=== PATIENT | female | born 1955 | race African-American/Black ===

== ENCOUNTER 2020-04-30 01:12 | Inpatient (IN) | payer OTHER ==
--- OUTSIDE RECORDS SUMMARY | 2020-04-30 01:43 | XMS ---
:1955 Author Organization [facility] Support Name Relationship Address Phone [employer] Unavailable [address] [place] [address] [employer] DAUGH[employer] [address] [place] [address] Re-disclosure Warning The records that you are about to access may contain information from federally- assisted alcohol or drug abuse programs. If such information is present, then the following federally mandated warning applies: This information has been disclosed to you from records protected by federal confidentiality rules (42 CFR part 2). The federal rules prohibit you from making any further disclosure of this information unless further disclosure is expressly permitted by the written consent of the person to whom it pertains or as otherwise permitted by 42 CFR part 2. A general authorization for the release of medical or other information is NOT sufficient for this purpose. The Federal rules restrict any use of the information to criminally investigate or prosecute any alcohol or drug abuse patient.The records that you are about to access may contain highly sensitive health information, the redisclosure of which is protected by Article 27-F of the [facility] Public Health law. If you continue you may haveaccess to information: Regarding HIV / AIDS; Provided by facilities licensed or operated by the [facility] Office of Mental Health; or Provided by the [facility] Office for People With Developmental Disabilities. If such information is present, then the following [facility] mandated warning applies: This information has been disclosed to you from confidential records which are protected by state law. State law prohibits you from making any further disclosure of this information without the specific written consent of the person to whom it pertains, or as otherwise permitted by law. Any unauthorized further disclosure in violation of state law may result in a fine or half-way sentence or both. A general authorization for the release of medical or other information is NOT sufficient authorization for further disclosure. Insurance Providers Payer name Policy type Policy ID Covered Covered green party's Policy P madalyn / Coverage green party ID relationship to Ba Inf ormation type ba MEDICARE [id number]
[2020-04-30 01:50] VITALS: BMI 29.2
--- NOTE | 2020-04-30 01:52 | PDOC ---
Attending Attestation - Resident Resident Name: Derek Barnes - ED Attending Attestation I have performed the following: I have examined & evaluated the patient, The case was reviewed & discussed with the resident, I agree w/resident's findings & plan - HPI HPI: 04/30/20 06:48 HPI: 65yo F pmh DM, hyperthyroidism, anemia, lower back pain presenting with 1 day of hematuria. Patient reports 1 day of pain and increasing amounts of gross blood with urination. Denies fevers, chills, nausea, vomiting. Patient denies prior UTI and is concerned that blood in the urine is caused by malignancy. She initially states to a different provider that she has vaginal bleeding, but now states she only sees blood in urine and has no bleeding between episodes of urination. Denies changes in frequency, no pyuria. Prior open chol. No bloody or dark stools. Concerned for malignancy, when asked about the concern, only related to blood x1 day, denies night sweats, weight loss, pain or bleeding before today. - Physicial Exam PE: 04/30/20 06:48 Pt has lower abdomen and flank pain Pt has no fever and no chills. + suprapubic pain and left flank pain - Medical Decision Making 04/30/20 02:47 Patient Name: SONDRA MEDEIROS THIS IS A PRELIMINARY REPORT DATE OF SERVICE: 2020-04-30 01:50:30 IMAGES: 43 EXAM: Ultrasound pelvis transvaginal HISTORY: 65-year-old female with vaginal bleeding COMPARISON: None. FINDINGS: The uterus measures 11.1 x 6.7 x 4.5 cm. Heterogeneous nonspecific density in the uterus myometrium most likely due to fibroids and other uterine masses including malignancy cannot be excluded. In the midportion of the uterus there is a 5 x 3.4 x 4.7 cm area of heterogeneous echogenicity and in the left uterine myometrium there is a 3.0 x 3.0 x 3.5 cm area of heterogeneous echogenicity and a 2.3 x 2.1 x 2.6 cm heterogeneous area of echogenicity and a lower uterine segment heterogeneous area of echogenicity measures 1.9 x 2 x 2.1 cm most likely due to fibroids and other uterine masses including malignancy cannot be excluded. Heterogeneous nonspecific 1.2 cm thickening of the endometrium may be benign or malignant. Limited exam with nonvisualization of the ovaries. There is no free fluid in the pelvis. IMPRESSION: Heterogeneous nonspecific density in the uterus myometrium most likely due to fibroids and other uterine masses including malignancy cannot be excluded. Heterogeneous nonspecific 1.2 cm thickening of the endometrium may be benign or malignant. Pt admitted Discharge - Discharge Information Problems reviewed: Yes Clinical Impression/Diagnosis: Pyelonephritis of left kidney, Uterine mass Urinary tract infection Qualifiers: Urinary tract infection type: acute pyelonephritis Qualified Code(s): N10 - Acute pyelonephritis Condition: Good Disposition: HOME - Follow up/Referral - Patient Discharge Instructions - Post Discharge Activity
--- NOTE | 2020-04-30 01:57 | PDOC ---
History of Present Illness - General Chief Complaint: Hematuria Stated Complaint: VAG BLEED Time Seen by Provider: 04/30/20 01:46 History Source: Patient Exam Limitations: No Limitations - History of Present Illness Initial Comments: 04/30/20 03:13 PCP: Devang Monte HPI: 65yo F pmh DM, hyperthyroidism, anemia, lower back pain presenting with 1 day of hematuria. Patient reports 1 day of pain and increasing amounts of gross blood with urination. Denies fevers, chills, nausea, vomiting. Patient denies prior UTI and is concerned that blood in the urine is caused by malignancy. She initially states to a different provider that she has vaginal bleeding, but now states she only sees blood in urine and has no bleeding between episodes of urination. Denies changes in frequency, no pyuria. Prior open kamala, remote. No changes in bowel movements, no bloody or dark stools. Concerned for malignancy, when asked about the concern, only related to blood x1 day, denies night sweats, weight loss, pain or bleeding before today. All: NKDA Meds: Per chart PMH: As above PSH: Thyroid, Open Kamala Past History - Travel History Traveled outside of the country in the last 30 days: No Close contact w/someone who was outside of country & ill: No - Medical History Allergies/Adverse Reactions: Allergies Allergy/AdvReac Type Severity Reaction Status Date / Time No Known Allergies Allergy Verified 04/30/20 01:50 Home Medications: Ambulatory Orders Insulin (Levemir) [Levemir Vial] 0 unit SQ DAILY 04/05/16 Levothyroxine [Synthroid -] 0 mg PO DAILY 04/05/16 Lidocaine 5% Patch [Lidoderm Patch -] 1 patch TP DAILY #30 patch 04/05/16 Metoprolol Succinate [Toprol Xl -] 0 mg PO DAILY 04/05/16 Oxycodone HCl/Acetaminophen [Percocet 5-325 mg Tablet] 1 tab PO Q4H #20 tablet MDD 4 04/05/16 Diabetes: Yes HTN: Yes Thyroid Disease: Yes - Surgical History Cholecystectomy: Yes - Psycho-Social/Smoking History Smoking Status: No Smoking History: Never smoked Have you smoked in the past 12 months: No Number of Cigarettes Smoked Daily: 0 Review of Systems - Review of Systems Able to Perform ROS?: Yes Is the patient limited Jamaican proficient: Yes Constitutional: No: Chills, Diaphoresis, Fever, Loss of Appetite, Malaise, Weakness, Unintentional Wgt. Loss, Unexplained wgt Loss HEENTM: No: Recent change in vision, Nose Congestion, Throat Pain Respiratory: No: Cough, Shortness of Breath Cardiac (ROS): Yes: Lightheadedness (today only). No: Chest Pain, Palpitations, Syncope, Chest Tightness ABD/GI: No: Constipated, Diarrhea, Nausea, Poor Appetite, Poor Fluid Intake, Vo miting : No: Burning, Dysuria, Frequency Musculoskeletal: No: Back Pain, Muscle Pain, Muscle Weakness Integumentary: No: Bruising, Pruritus, Rash Neurological: No: Headache, Numbness, Tingling, Weakness Psychiatric: No: Sleep Pattern Change, Change in Appetite Endocrine: No: Increased Thirst, Increased Urine, Unexplained Weight Gain, Unexplained Weight Loss, Change in Weight Hematologic/Lymphatic: No: Anemia, Blood Clots, Easy Bleeding All Other Systems: Reviewed and Negative *Physical Exam - Physical Exam 04/30/20 03:18 Vitals reviewed, AFVSS GEN: Well appearing, appears stated age, NAD, comfortable. AAOx3. HEENT: NCAT, EOMI, PERRL. Sclera anicteric, noninjected. No facial asymmetry. Moist mucous membranes. Normal voice. Trachea midline. CV: RRR, S1/S2, no murmurs / rubs / gallops appreciated. LUNG: CTABL, normal work of breathing. No wheezes, rales, rhonchi. No cough. Speaking full sentences. GI: Soft, Non-distended, TTP in lower abdomen, +BS, +guarding, no rebound. No masses. +Left CVA tenderness. EXTREMITIES: 2+ distal pulses. No clubbing / cyanosis / edema. No gross deformity in any extremity. SKIN: Warm, dry, no rashes appreciated, non-jaundiced. PSYCH: Normal mood and affect. Cooperative and appropriate. NEURO: CN grossly intact. Moving all extremities well. Normal strength and sensation grossly ED Treatment Course - LABORATORY CBC & Chemistry Diagram: 04/30/20 02:30 04/30/20 02:30 Medical Decision Making - Medical Decision Making 04/30/20 03:17 65yo F pmh DM, hyperthyroidism, anemia, lower back pain presenting with 1 day of hematuria. History notable for acute course of presenting symptoms. Exam notable for left CVA, suprapubic tenderness. Together concerning for UTI / Pyelonephr itis, GNY pathology / malignancy also on the DDX. - TVUS - CBC, CMP, Coags - UA, UCx - CTAP - UA with gross UTI, exam c/w pyelonephritis, Rocephin, Toradol, IVF - TVUS with mass c/f malignancy per radiology 04/30/20 05:[address] Jg GRIMALDO with ?colon mass, breast changes, uterine mass Dispo: Med/Surg Discharge - Discharge Information Problems reviewed: Yes Clinical Impression/Diagnosis: Pyelonephritis of left kidney, Uterine mass Urinary tract infection Qualifiers: Urinary tract infection type: acute pyelonephritis Qualified Code(s): N10 - Acute pyelonephritis Condition: Guarded - Follow up/Referral - Patient Discharge Instructions - Post Discharge Activity
[2020-04-30 02:40] LABS: BASO % 0.7 % (0-2.0); EOS % 1.2 % (0-4.5); HEMATOCRIT 37.2 % (32.4-45.2); HEMOGLOBIN 12.3 GM/dL (10.7-15.3); LYMPH % 14.7 % (8-40); MCH 25.4 pg (25.7-33.7); MCHC 33.1 g/dl (32.0-36.0); MEAN CELL VOLUME 76.7 fl (80-96); MEAN PLT VOLUME 8.9 fl (7.5-11.1); MONO % 10.6 % (3.8-10.2); NEUT % 72.8 % (42.8-82.8); PLATELET COUNT 229 K/MM3 (134-434); RBC 4.85 M/mm3 (3.60-5.2); RDW 16.8 % (11.6-15.6); WHITE BLOOD COUNT 12.5 K/mm3 (4.0-10.0)
[2020-04-30 02:43] LABS: EPI CELLS 21 /uL (0-25.1); HYALINE CASTS 4 /uL (0-3.1); URINE APPEARANCE TURBID; URINE BACTERIA 1526 /uL (0-1359); URINE BILIRUBIN NEGATIVE (NEGATIVE); URINE COLOR RED; URINE GLUCOSE (UA) NEGATIVE (NEGATIVE); URINE KETONE NEGATIVE (NEGATIVE); URINE LEUK ESTERASE 3+ (NEGATIVE); URINE NITRITE NEGATIVE (NEGATIVE); URINE PROTEIN 2+ (NEGATIVE); URINE RBC 9057 /uL (0-23.9); URINE UROBILINOGEN 0.2 mg/dL (0.2-1.0); URINE WBC 2130 /uL (0-25.8)
[2020-04-30] MEDS ORDERED: CEFTRIAXONE 1 GM in DEXTROSE 5%-WATER - 50 ML IVPB ONE (02:45)
[2020-04-30] MEDS ORDERED: KETOROLAC TROMETHAMINE 30 MG/1 ML VIAL IVPUSH ONE (02:45)
[2020-04-30] MEDS ORDERED: CEFTRIAXONE 1 GM/50 ML BAG ONE (02:46)
[2020-04-30] MEDS ORDERED: KETOROLAC TROMETHAMINE 30 MG/1 ML VIAL ONE (02:46)
[2020-04-30 03:12] LABS: CALCIUM 9.3 mg/dL (8.5-10.1)
[2020-04-30 03:13] LABS: ALBUMIN 3.6 g/dl (3.4-5.0); BLOOD UREA NITROGEN 9.3 mg/dL (7-18)
[2020-04-30 03:16] LABS: CREATININE 0.8 mg/dL (0.55-1.3)
[2020-04-30 03:18] LABS: BILIRUBIN,TOTAL 0.4 mg/dL (0.2-1); TOT PROT 7.4 g/dl (6.4-8.2)
[2020-04-30] MEDS ORDERED: SODIUM CHLORIDE 0.9% 500 ML INFUS.BAG IV ONE (03:26)
[2020-04-30 04:17] LABS: PROTHROMBIN TIME (PATIENT) 12.1 SEC (9.7-13.0)
[2020-04-30 04:19] LABS: ACTIVATED PTT 28.8 SECONDS (25.2-36.5)
--- OUTSIDE RECORDS SUMMARY | 2020-04-30 05:23 | XMS ---
:1955 Author Organization [facility] Support Name Relationship Address Phone [facility] Unavailable [address] [place] [address] [employer] [address] [place] [address] Re-disclosure Warning The records that you are [...] is protected by Article 27-F of the [facility] Public Health law. If you continue you may haveaccess to information: Regarding HIV / AIDS; Provided by facilities licensed or operated by the [facility] Office of Mental Health; or Provided by the [facility] Office for People With Developmental Disabilities. If such information is present, then the following [facility] mandated warning applies: This information has been [...] law may result in a fine or intermediate sentence or both. A general authorization for the release of medical or other information is NOT sufficient authorization for further disclosure. Insurance Providers Payer name Policy type Policy ID Covered Covered green party's Policy P madalyn / Coverage green party ID relationship to Ba Inf ormation type ba MEDICARE [id number]
--- NOTE | 2020-04-30 11:55 | CON.ID ---
Consult Consult Specialty:: infectious disease Referred by:: Reason for Consultation:: uti,hematuria - History of Present Illness Chief Complaint: blood in the urine History of Present Illness: 65yo F pmh DM, hyperthyroidism, anemia, lower back pain presenting with hematuria. Patient reports of pain and increasing amounts of gross blood with urination. Denies fevers, chills, nausea, vomiting. . Denies changes in frequency, no pyuria. Prior open chol. No bloody or dark stools. currently she feels very weak and hungry and says blood has stopped now - History Source History Provided By: Patient Limitations to Obtaining History: No Limitations - Past Medical History ...: No - Alcohol/Substance Use Hx Alcohol Use: No - Smoking History Smoking history: Never smoked Have you smoked in the past 12 months: No Aproximately how many cigarettes per day: 0 Home Medications - Allergies Allergies/Adverse Reactions: Allergies Allergy/AdvReac Type Severity Reaction Status Date / Time No Known Allergies Allergy Verified 04/30/20 01:50 - Home Medications Home Medications: Ambulatory Orders Insulin (Levemir) [Levemir Vial] 0 unit SQ DAILY 04/05/16 Levothyroxine [Synthroid -] 0 mg PO DAILY 04/05/16 Lidocaine 5% Patch [Lidoderm Patch -] 1 patch TP DAILY #30 patch 04/05/16 Metoprolol Succinate [Toprol Xl -] 0 mg PO DAILY 04/05/16 Oxycodone HCl/Acetaminophen [Percocet 5-325 mg Tablet] 1 tab PO Q4H #20 tablet MDD 4 04/05/16 Review of Systems - Review of Systems Constitutional: reports: Weakness Eyes: reports: No Symptoms HENT: reports: No Symptoms Neck: reports: No Symptoms Cardiovascular: reports: No Symptoms Respiratory: reports: No Symptoms Gastrointestinal: reports: No Symptoms Genitourinary: reports: Hematuria, Other Musculoskeletal: reports: No Symptoms Integumentary: reports: No Symptoms Neurological: reports: No Symptoms Endocrine: reports: No Symptoms Hematology/Lymphatic: reports: No Symptoms Psychiatric: reports: No Symptoms Physical Exam Vital Signs: Vital Signs Temperature 97.9 F 04/30/20 10:40 Pulse Rate 106 H 04/30/20 10:40 Respiratory Rate 18 04/30/20 10:40 Blood Pressure 129/54 L 04/30/20 10:40 O2 Sat by Pulse Oximetry (%) 98 04/30/20 10:40 Constitutional: Yes: Calm, Mild Distress Eyes: Yes: Conjunctiva Clear HENT: Yes: Atraumatic, Normocephalic Neck: Yes: Supple, Trachea Midline Cardiovascular: Yes: Regular Rate and Rhythm Respiratory: Yes: Regular, CTA Bilaterally Gastrointestinal: Yes: Normal Bowel Sounds, Soft Musculoskeletal: Yes: WNL Extremities: Yes: WNL Neurological: Yes: Alert, Oriented Psychiatric: Yes: Alert, Oriented Labs: CBC, BMP 04/30/20 02:30 04/30/20 02:30 Imaging - Results Cat Scan: Report Reviewed, Image Reviewed Ultrasound: Report Reviewed, Image Reviewed Assessment/Plan this patient coming in with hematuria which ahs now stopped patients imaging studies noted worry about malignancy consider gi and surgery to look at the patient will start patient on zosyn for now await for all results rest as per the team needs further work up
[2020-04-30] MEDS ORDERED: PIPERACILLIN/TAZOBACTAM 3.375 GM VIAL IVPB ONE ×2 (13:34→18:34)
[2020-04-30] MEDS: DEXTROSE 5%-0.45% SALINE 1,000 ML IV SCH (13:39)
[2020-04-30] MEDS: PIPERACILLIN/TAZOB 3.375 GM 3.375 GM in DEXTROSE 5%-WATER - 50 ML IVPB SCH ×2 (13:40→18:37)
[2020-04-30] MEDS: INSULIN SLIDING SCALE (NOVOLOG) 1 VIAL SQ SCH ×3 (13:54→21:22)
[2020-04-30] MEDS ORDERED: INSULIN (NOVOLOG) ASPART 100 UNITS/ML 10ML VIAL ONE ×2 (13:54→20:51)
[2020-04-30] MEDS: ACETAMINOPHEN 325 MG TABLET (FP) PO PRN (17:03)
[2020-04-30] MEDS ORDERED: ACETAMINOPHEN 325 MG TABLET (FP) PO ONE (17:30)
[2020-04-30] MEDS ORDERED: DEXTROSE 5%-WATER - 50 ML IVPB ONE (18:34)
[2020-04-30] MEDS: HEPARIN NA (PORCINE) 5,000 UNITS/ML 1ML VIAL SQ SCH (21:21)
--- NOTE | 2020-04-30 22:19 | HP ---
Admitting History and Physical - Admission History of Present Illness: Pt is a 65 y/o female w/ PMH significant for DM, hyperthyroidism, anemia, lower back pain presenting with 1 day of hematuria. Patient reports 1 day of pain and increasing amounts of gross blood with urination. Denies fevers, chills, nausea, vomiting. Patient denies prior UTI and is concerned that blood in the urine is caused by malignancy. - Past Medical History ...: No Heme/Onc: Yes: Anemia Endocrine: Yes: Diabetes Mellitus, Hyperthyroidism - Smoking History Smoking history: Never smoked Have you smoked in the past 12 months: No Aproximately how many cigarettes per day: 0 - Alcohol/Substance Use Hx Alcohol Use: No Home Medications - Allergies Allergies/Adverse Reactions: Allergies Allergy/AdvReac Type Severity Reaction Status Date / Time No Known Allergies Allergy Verified 04/30/20 01:50 - Home Medications Home Medications: Ambulatory Orders Levothyroxine [Synthroid -] 25 mg PO DAILY 04/05/16 Metoprolol Succinate [Toprol Xl -] 25 mg PO DAILY 04/05/16 Insulin Aspart [Novolog] See Protocol SQ TID PRN 04/30/20 Insulin Degludec [Tresiba] 20 units SQ DAILY 04/30/20 Family Medical History Family History: Unremarkable Review of Systems - Review of Systems Constitutional: reports: No Symptoms Eyes: reports: No Symptoms HENT: reports: No Symptoms Neck: reports: No Symptoms Cardiovascular: reports: No Symptoms Respiratory: reports: No Symptoms Physical Examination Vital Signs: Vital Signs Temperature 98.1 F 04/30/20 22:06 Pulse Rate 59 L 04/30/20 22:06 Respiratory Rate 18 04/30/20 22:06 Blood Pressure 143/56 L 04/30/20 22:06 O2 Sat by Pulse Oximetry (%) 95 04/30/20 22:06 Constitutional: Yes: No Distress Eyes: Yes: WNL HENT: Yes: WNL Neck: Yes: WNL, Supple Cardiovascular: Yes: WNL, Regular Rate and Rhythm Respiratory: Yes: WNL, Regular, CTA Bilaterally Gastrointestinal: Yes: WNL, Normal Bowel Sounds, Soft Extremities: Yes: WNL Edema: No Neurological: Yes: WNL, Alert, Oriented ...Motor Strength: WNL Labs: CBC, BMP 04/30/20 02:30 04/30/20 02:30 Problem List - Problems (1) Pyelonephritis Assessment/Plan: Cont IV antibx Cont IVF Monitor cultures ID consult Code(s): N12 - TUBULO-INTERSTITIAL NEPHRITIS, NOT SPCF ACUTE OR CHRONIC (2) Colonic mass Assessment/Plan: Will get GI/Surgical consults Code(s): K63.89 - OTHER SPECIFIED DISEASES OF INTESTINE (3) Uterine fibroid Assessment/Plan: [employer] consult Code(s): D25.9 - LEIOMYOMA OF UTERUS, UNSPECIFIED (4) Anemia Assessment/Plan: H/H stable Code(s): D64.9 - ANEMIA, UNSPECIFIED (5) Diabetes Assessment/Plan: Cont sliding scale w/ coverage Code(s): E11.9 - TYPE 2 DIABETES MELLITUS WITHOUT COMPLICATIONS
[2020-05-01] MEDS ORDERED: DEXTROSE 5%-WATER - 50 ML IVPB ONE ×3 (01:05→17:08)
[2020-05-01] MEDS ORDERED: PIPERACILLIN/TAZOBACTAM 3.375 GM VIAL IVPB ONE ×3 (01:05→17:08)
[2020-05-01] MEDS: PIPERACILLIN/TAZOB 3.375 GM 3.375 GM in DEXTROSE 5%-WATER - 50 ML IVPB SCH ×3 (02:00→17:13)
[2020-05-01] MEDS: DEXTROSE 5%-0.45% SALINE 1,000 ML IV SCH ×2 (04:40→16:52)
[2020-05-01] MEDS: LEVOTHYROXINE NA 25 MCG TABLET (FP) PO SCH (06:12)
[2020-05-01] MEDS: INSULIN SLIDING SCALE (NOVOLOG) 1 VIAL SQ SCH ×4 (06:12→22:39)
[2020-05-01] MEDS: ACETAMINOPHEN 325 MG TABLET (FP) PO PRN ×2 (06:17→22:50)
[2020-05-01 07:57] LABS: BASO % 0.7 % (0-2.0); EOS % 2.6 % (0-4.5); HEMATOCRIT 33.4 % (32.4-45.2); HEMOGLOBIN 10.8 GM/dL (10.7-15.3); LYMPH % 34.2 % (8-40); MCH 24.8 pg (25.7-33.7); MCHC 32.2 g/dl (32.0-36.0); MEAN PLT VOLUME 10.1 fl (7.5-11.1); MONO % 13.5 % (3.8-10.2); PLATELET COUNT 212 K/MM3 (134-434); RBC 4.34 M/mm3 (3.60-5.2); RDW 16.7 % (11.6-15.6); WHITE BLOOD COUNT 6.3 K/mm3 (4.0-10.0)
[2020-05-01 08:16] LABS: ALBUMIN 2.7 g/dl (3.4-5.0); BLOOD UREA NITROGEN 9.6 mg/dL (7-18); CALCIUM 8.7 mg/dL (8.5-10.1)
[2020-05-01 08:19] LABS: CREATININE 0.8 mg/dL (0.55-1.3)
[2020-05-01 08:21] LABS: BILIRUBIN,TOTAL 0.6 mg/dL (0.2-1); TOT PROT 5.8 g/dl (6.4-8.2)
[2020-05-01] MEDS: HEPARIN NA (PORCINE) 5,000 UNITS/ML 1ML VIAL SQ SCH ×2 (09:17→22:28)
[2020-05-01] MEDS: metoPROLOL SUCCINATE 25 MG TAB.SR.24H (FP) PO SCH (09:17)
[2020-05-01] MEDS ORDERED: MORPHINE SULFATE 2 MG/ML VIAL IVPUSH ONE (10:00)
[2020-05-01] MEDS ORDERED: CEFTRIAXONE 1 GM in DEXTROSE 5%-WATER - 50 ML IVPB SCH (10:00)
[2020-05-01] MEDS ORDERED: INSULIN (NOVOLOG) ASPART 100 UNITS/ML 10ML VIAL ONE ×2 (11:33→16:48)
--- NOTE | 2020-05-01 11:44 | PN ---
Progress Note, Physician History of Present Illness: stable no new issues - Current Medication List Current Medications: Active Medications Acetaminophen (Tylenol -) 650 mg PO Q6H PRN PRN Reason: PAIN LEVEL 6-10 Last Admin: 05/01/20 06:17 Dose: 650 mg Documented by: Heparin Sodium (Porcine) (Heparin -) 5,000 unit SQ BID [facility] Last Admin: 05/01/20 09:17 Dose: 5,000 unit Documented by: Dextrose/Sodium Chloride (D5-1/2ns -) 1,000 mls @ 75 mls/hr IV ASDIR [facility] Last Admin: 05/01/20 04:40 Dose: 75 mls/hr Documented by: Piperacillin Sod/Tazobactam (Sod 3.375 gm/ Dextrose) 50 mls @ 100 mls/hr IVPB Q8H-IV [facility]; Protocol Last Admin: 05/01/20 09:17 Dose: 100 mls/hr Documented by: Insulin Aspart (Novolog Vial Sliding Scale -) 1 vial SQ ACHS [facility]; Protocol Last Admin: 05/01/20 11:34 Dose: 8 units Documented by: Insulin Detemir (Levemir Vial) [address] [facility] Levothyroxine Sodium (Synthroid -) 25 mcg PO DAILY@0700 [facility] Last Admin: 05/01/20 06:12 Dose: Not Given Documented by: Metoprolol Succinate (Toprol Xl -) 25 mg PO DAILY [facility] Last Admin: 05/01/20 09:17 Dose: 25 mg Documented by: - Objective Vital Signs: Vital Signs Temperature 98.0 F 05/01/20 09:25 Pulse Rate 68 05/01/20 09:25 Respiratory Rate 18 05/01/20 09:25 Blood Pressure 122/75 05/01/20 09:25 O2 Sat by Pulse Oximetry (%) 95 05/01/20 10:39 Constitutional: Yes: No Distress, Calm Cardiovascular: Yes: S1, S2 Respiratory: Yes: Regular, CTA Bilaterally Gastrointestinal: Yes: Normal Bowel Sounds, Soft Musculoskeletal: Yes: WNL Extremities: Yes: WNL Neurological: Yes: Alert, Oriented Psychiatric: Yes: Alert, Oriented Labs: CBC, BMP 05/01/20 07:05 05/01/20 07:05 INR, PTT INR 1.00 (0.83-1.09) 04/30/20 03:24 Assessment/Plan roblem List - Problems (1) Pyelonephritis Code(s): N12 - TUBULO-INTERSTITIAL NEPHRITIS, NOT SPCF ACUTE OR CHRONIC (2) Colonic mass Code(s): K63.89 - OTHER SPECIFIED DISEASES OF INTESTINE (3) Uterine fibroid Code(s): D25.9 - LEIOMYOMA OF UTERUS, UNSPECIFIED (4) Anemia Code(s): D64.9 - ANEMIA, UNSPECIFIED (5) Diabetes Code(s): E11.9 - TYPE 2 DIABETES MELLITUS WITHOUT COMPLICATIONS plan continue abx rest as per the team await for gi and surgical
--- NOTE | 2020-05-01 13:05 | CON.GI ---
Consult Consult Specialty:: GI Reason for Consultation:: colonic mass - History of Present Illness History of Present Illness: pt seen at bedside, reports to have rt sided back and flank pain radiating to the RLQ abdomen. Reports lower abdomen pain as well. Pt reports h/o occasional constipation with incomplete evacuation accompanied with rectal bleeding when constipated. Dysuria much better as compared to yesterday. Denies colonoscopy in the past. No BM today 65yo F pmh DM, hyperthyroidism, anemia, lower back pain presenting with 1 day of hematuria. Patient reports 1 day of pain and increasing amounts of gross blood with urination. Denies fevers, chills, nausea, vomiting. . Prior open kamala, remote. - History Source Limitations to Obtaining History: No Limitations - Past Medical History ...: No Endocrine: Yes: Diabetes Mellitus, Hyperthyroidism - Alcohol/Substance Use Hx Alcohol Use: No - Smoking History Smoking history: Never smoked Have you smoked in the past 12 months: No Aproximately how many cigarettes per day: 0 Home Medications - Allergies Allergies/Adverse Reactions: Allergies Allergy/AdvReac Type Severity Reaction Status Date / Time No Known Allergies Allergy Verified 04/30/20 01:50 - Home Medications Home Medications: Ambulatory Orders Metoprolol Succinate [Toprol Xl -] 25 mg PO DAILY 04/05/16 Insulin Aspart [Novolog] See Protocol SQ TID PRN 04/30/20 Insulin Degludec [Tresiba] 20 units SQ DAILY 04/30/20 Family Medical History Family History: Unremarkable Review of Systems - Review of Systems Constitutional: reports: No Symptoms Eyes: reports: No Symptoms HENT: reports: No Symptoms Neck: reports: No Symptoms Cardiovascular: reports: No Symptoms Respiratory: reports: No Symptoms Gastrointestinal: reports: Abdominal Pain (RLQ), Constipation (reports occasional constipation with incomplete evacuation), Rectal Bleeding (occacional when constipated). denies: Bloating, Diarrhea, Dysphagia, Indigestion, Melena, Vomiting, Vomiting Blood Genitourinary: reports: Burning Physical Exam-GI Vital Signs: Vital Signs Temperature 98.0 F 05/01/20 09:25 Pulse Rate 68 05/01/20 09:25 Respiratory Rate 18 05/01/20 09:25 Blood Pressure 122/75 05/01/20 09:25 O2 Sat by Pulse Oximetry (%) 95 05/01/20 10:39 Constitutional: Yes: Well Nourished, No Distress, Calm Eyes: Yes: WNL, Conjunctiva Clear, EOM Intact HENT: Yes: WNL, Atraumatic, Normocephalic Neck: Yes: WNL, Supple, Trachea Midline Cardiovascular: Yes: WNL, Regular Rate and Rhythm Respiratory: Yes: WNL, Regular, CTA Bilaterally Gastrointestinal Inspection: Yes: WNL ...Auscultate: Yes: Normoactive Bowel Sounds Labs: CBC, BMP 05/01/20 07:05 05/01/20 07:05 INR, PTT INR 1.00 (0.83-1.09) 04/30/20 03:24 Imaging - Results Cat Scan: Report Reviewed Problem List - Problems (1) Cecum mass Assessment/Plan: plan discussed with Dr Guidry. - cecal mass associated with h/o constipation - CEA levels - GI work up, colonoscopy as out patient - pt made aware to follow up Code(s): K63.89 - OTHER SPECIFIED DISEASES OF INTESTINE
--- NOTE | 2020-05-01 16:28 | PN ---
Progress Note, Physician History of Present Illness: feeling better - Current Medication List Current Medications: Active Medications Acetaminophen (Tylenol -) 650 mg PO Q6H PRN PRN Reason: PAIN LEVEL 6-10 Last Admin: 05/01/20 06:17 Dose: 650 mg Documented by: Heparin Sodium (Porcine) (Heparin -) 5,000 unit SQ BID [facility] Last Admin: 05/01/20 09:17 Dose: 5,000 unit Documented by: Dextrose/Sodium Chloride (D5-1/2ns -) 1,000 mls @ 75 mls/hr IV ASDIR [facility] Last Admin: 05/01/20 04:40 Dose: 75 mls/hr Documented by: Piperacillin Sod/Tazobactam (Sod 3.375 gm/ Dextrose) 50 mls @ 100 mls/hr IVPB Q8H-IV [facility]; Protocol Last Admin: 05/01/20 09:17 Dose: 100 mls/hr Documented by: Insulin Aspart (Novolog Vial Sliding Scale -) 1 vial SQ [facility]; Protocol Last Admin: 05/01/20 11:34 Dose: 8 units Documented by: Insulin Detemir (Levemir Vial) 20 units SQ [facility] Levothyroxine Sodium (Synthroid -) 25 mcg PO DAILY@0700 [facility] Last Admin: 05/01/20 06:12 Dose: Not Given Documented by: Metoprolol Succinate (Toprol Xl -) 25 mg PO DAILY [facility] Last Admin: 05/01/20 09:17 Dose: 25 mg Documented by: - Objective Vital Signs: Vital Signs Temperature 97.4 F L 05/01/20 14:22 Pulse Rate 53 L 05/01/20 14:22 Respiratory Rate 18 05/01/20 14:22 Blood Pressure 116/45 L 05/01/20 14:22 O2 Sat by Pulse Oximetry (%) 95 05/01/20 10:39 Constitutional: Yes: No Distress HENT: Yes: Atraumatic Neck: Yes: Supple Cardiovascular: Yes: Regular Rate and Rhythm Respiratory: Yes: CTA Bilaterally Gastrointestinal: Yes: Normal Bowel Sounds Extremities: Yes: WNL Neurological: Yes: Alert, Oriented Labs: CBC, BMP 05/01/20 07:05 05/01/20 07:05 INR, PTT INR 1.00 (0.83-1.09) 04/30/20 03:24 Problem List - Problems (1) Diabetes Assessment/Plan: monitor bs on insulin Code(s): E11.9 - TYPE 2 DIABETES MELLITUS WITHOUT COMPLICATIONS (2) Pyelonephritis Assessment/Plan: iv abx cxs pending Code(s): N12 - TUBULO-INTERSTITIAL NEPHRITIS, NOT SPCF ACUTE OR CHRONIC (3) Urinary tract infection Code(s): N39.0 - URINARY TRACT INFECTION, SITE NOT SPECIFIED Qualifiers: Urinary tract infection type: acute pyelonephritis Qualified Code(s): N10 - Acute pyelonephritis Assessment/Plan COVERING FOR DR SINGH TODAY
--- NOTE | 2020-05-01 19:26 | CONSULT ---
Consult Consult Specialty:: Surgery Reason for Consultation:: cecal mass - History of Present Illness Chief Complaint: hematuria, anemia, and back pain History of Present Illness: Pt is a 65 y/o female w/ PMH significant for DM, hyperthyroidism, anemia, lower back pain presenting with 1 day of hematuria. Patient reports 1 day of pain and increasing amounts of gross blood with urination. Denies fevers, chills, nausea, vomiting. Patient denies prior UTI and is concerned that blood in the urine is caused by malignancy. CT A/P showed cecal mass. Denies weight loss but was told to be anemic and placed on iron supplement by PMD. Has had no colonoscopy in the past. - History Source History Provided By: Patient - Past Medical History ...: No Endocrine: Yes: Diabetes Mellitus, Hyperthyroidism - Alcohol/Substance Use Hx Alcohol Use: No - Smoking History Smoking history: Never smoked Have you smoked in the past 12 months: No Aproximately how many cigarettes per day: 0 Home Medications - Allergies Allergies/Adverse Reactions: Allergies Allergy/AdvReac Type Severity Reaction Status Date / Time No Known Allergies Allergy Verified 04/30/20 01:50 - Home Medications Home Medications: Ambulatory Orders Metoprolol Succinate [Toprol Xl -] 25 mg PO DAILY 04/05/16 Insulin Aspart [Novolog] See Protocol SQ TID PRN 04/30/20 Insulin Degludec [Tresiba] 20 units SQ DAILY 04/30/20 Family Medical History Family History: Unremarkable Review of Systems - Review of Systems Eyes: reports: No Symptoms HENT: reports: No Symptoms Neck: reports: No Symptoms Cardiovascular: reports: No Symptoms Respiratory: reports: No Symptoms Gastrointestinal: reports: Melena (attributed to iron Rx) Genitourinary: reports: Dysuria, Frequency, Hematuria Musculoskeletal: reports: No Symptoms Integumentary: reports: No Symptoms Neurological: reports: No Symptoms Physical Exam Vital Signs: Vital Signs Temperature 97.4 F L 05/01/20 14:22 Pulse Rate 58 L 05/01/20 18:00 Respiratory Rate 18 05/01/20 14:22 Blood Pressure 108/65 05/01/20 18:00 O2 Sat by Pulse Oximetry (%) 96 05/01/20 18:00 Constitutional: Yes: No Distress HENT: Yes: Normocephalic Neck: Yes: Supple Cardiovascular: Yes: Regular Rate and Rhythm Respiratory: Yes: CTA Bilaterally Gastrointestinal: Yes: Soft, Palpable Mass (none), Tenderness (none) Labs: CBC, BMP 05/01/20 07:05 05/01/20 07:05 Imaging - Results Cat Scan: Report Reviewed, Image Reviewed (cecal mass) Problem List - Problems (1) Cecum mass Assessment/Plan: r/o adenocarcinoma GI w/u - colonoscopy recommend [facility] consult will follow Code(s): K63.89 - OTHER SPECIFIED DISEASES OF INTESTINE
[2020-05-01] MEDS: INSULIN (LEVEMIR) 100 UNITS/ML UNITS SQ SCH (22:34)
[2020-05-02] MEDS ORDERED: PIPERACILLIN/TAZOBACTAM 3.375 GM VIAL IVPB ONE ×3 (00:35→17:26)
[2020-05-02] MEDS ORDERED: DEXTROSE 5%-WATER - 50 ML IVPB ONE ×2 (00:36→09:13)
[2020-05-02] MEDS: PIPERACILLIN/TAZOB 3.375 GM 3.375 GM in DEXTROSE 5%-WATER - 50 ML IVPB SCH ×3 (02:15→17:59)
[2020-05-02] MEDS: LEVOTHYROXINE NA 25 MCG TABLET (FP) PO SCH (06:39)
[2020-05-02] MEDS: INSULIN SLIDING SCALE (NOVOLOG) 1 VIAL SQ SCH ×4 (06:39→21:20)
[2020-05-02] MEDS: HEPARIN NA (PORCINE) 5,000 UNITS/ML 1ML VIAL SQ SCH ×2 (09:30→21:21)
[2020-05-02] MEDS: metoPROLOL SUCCINATE 25 MG TAB.SR.24H (FP) PO SCH (09:31)
[2020-05-02] MEDS: DEXTROSE 5%-0.45% SALINE 1,000 ML IV SCH (09:32)
--- NOTE | 2020-05-02 10:08 | PN ---
Progress Note, Physician History of Present Illness: stable weak - Current Medication List Current Medications: Active Medications Acetaminophen (Tylenol -) 650 mg PO Q6H PRN PRN Reason: PAIN LEVEL 6-10 Last Admin: 05/01/20 22:50 Dose: 650 mg Documented by: Heparin Sodium (Porcine) (Heparin -) 5,000 unit SQ BID [facility] Last Admin: 05/02/20 09:30 Dose: 5,000 unit Documented by: Dextrose/Sodium Chloride (D5-1/2ns -) 1,000 mls @ 75 mls/hr IV ASDIR [facility] Last Admin: 05/02/20 09:32 Dose: 75 mls/hr Documented by: Piperacillin Sod/Tazobactam (Sod 3.375 gm/ Dextrose) 50 mls @ 100 mls/hr IVPB Q8H-IV [facility]; Protocol Last Admin: 05/02/20 09:30 Dose: 100 mls/hr Documented by: Insulin Aspart (Novolog Vial Sliding Scale -) 1 vial SQ ACHS [facility]; Protocol Last Admin: 05/02/20 06:39 Dose: 2 units Documented by: Insulin Detemir (Levemir Vial) 20 units SQ HS [facility] Last Admin: 05/01/20 22:34 Dose: 20 units Documented by: Levothyroxine Sodium (Synthroid -) 25 mcg PO DAILY@0700 [facility] Last Admin: 05/02/20 06:39 Dose: Not Given Documented by: Metoprolol Succinate (Toprol Xl -) 25 mg PO DAILY [facility] Last Admin: 05/02/20 09:31 Dose: 25 mg Documented by: - Objective Vital Signs: Vital Signs Temperature 97.9 F 05/02/20 06:00 Pulse Rate 52 L 05/02/20 06:00 Respiratory Rate 18 05/02/20 06:00 Blood Pressure 130/50 L 05/02/20 06:00 O2 Sat by Pulse Oximetry (%) 97 05/02/20 06:00 Constitutional: Yes: No Distress, Calm Cardiovascular: Yes: S1, S2 Respiratory: Yes: Regular, CTA Bilaterally Gastrointestinal: Yes: Normal Bowel Sounds, Soft Musculoskeletal: Yes: WNL Extremities: Yes: WNL Neurological: Yes: Alert, Oriented Psychiatric: Yes: Alert, Oriented Labs: CBC, BMP 05/01/20 07:05 05/01/20 07:05 INR, PTT INR 1.00 (0.83-1.09) 04/30/20 03:24 Assessment/Plan gerard List - Problems (1) Pyelonephritis Code(s): N12 - TUBULO-INTERSTITIAL NEPHRITIS, NOT SPCF ACUTE OR CHRONIC (2) Colonic mass Code(s): K63.89 - OTHER SPECIFIED DISEASES OF INTESTINE (3) Uterine fibroid Code(s): D25.9 - LEIOMYOMA OF UTERUS, UNSPECIFIED (4) Anemia Code(s): D64.9 - ANEMIA, UNSPECIFIED (5) Diabetes Code(s): E11.9 - TYPE 2 DIABETES MELLITUS WITHOUT COMPLICATIONS cecal mass plan continue abx rest as per the team surgery and gi note noted
[2020-05-02] MEDS ORDERED: INSULIN (NOVOLOG) ASPART 100 UNITS/ML 10ML VIAL ONE ×2 (10:59→20:53)
--- NOTE | 2020-05-02 13:48 | PN.GI ---
GI Progress Note Subjective: Rt flank pain radiating to RLQ abdomen improving, dysuria improving as well. Pt denies N/V. Had a BM today. Tolerating diet. - Objective Vital Signs: Vital Signs Temperature 99.1 F 05/02/20 13:42 Pulse Rate 56 L 05/02/20 13:42 Respiratory Rate 18 05/02/20 13:42 Blood Pressure 144/69 05/02/20 13:42 O2 Sat by Pulse Oximetry (%) 97 05/02/20 10:00 Constitutional: Well Nourished, No Distress, Calm Eyes: Yes: WNL, Conjunctiva Clear, EOM Intact HENT: Yes: WNL, Atraumatic, Normocephalic Neck: Yes: WNL, Supple, Trachea Midline Cardiovascular: Yes: WNL, Regular Rate and Rhythm Respiratory: Yes: WNL, Regular, CTA Bilaterally Gastrointestinal Inspection: Yes: WNL ...Auscultate: Yes: Normoactive Bowel Sounds ...Palpate: Yes: Soft, Tenderness (mild RLQ). No: Firm/Rigid, Guarding, Hepatomegaly, Mass, Pulsatile Mass, Splenomegaly, Tenderness, Epigastium, Tenderness, Rebound Labs: CBC, BMP 05/01/20 07:05 05/01/20 07:05 INR, PTT INR 1.00 (0.83-1.09) 04/30/20 03:24 Problem List - Problems (1) Cecum mass Assessment/Plan: plan discussed with Dr Guidry. - cecal mass r/o adenocarcinoma - CEA levels- results pending - GI work up, colonoscopy as out patient - pt made aware to follow up Code(s): K63.89 - OTHER SPECIFIED DISEASES OF INTESTINE
[2020-05-02] MEDS: INSULIN (LEVEMIR) 100 UNITS/ML UNITS SQ SCH (21:20)
--- NOTE | 2020-05-02 21:34 | PN ---
Progress Note, Physician History of Present Illness: Pt feeling better - Current Medication List Current Medications: Active Medications Acetaminophen (Tylenol -) 650 mg PO Q6H PRN PRN Reason: PAIN LEVEL 6-10 Last Admin: 05/01/20 22:50 Dose: 650 mg Documented by: Heparin Sodium (Porcine) (Heparin -) 5,000 unit SQ BID [facility] Last Admin: 05/02/20 21:21 Dose: 5,000 unit Documented by: Dextrose/Sodium Chloride (D5-1/2ns -) 1,000 mls @ 75 mls/hr IV ASDIR [facility] Last Admin: 05/02/20 09:32 Dose: 75 mls/hr Documented by: Piperacillin Sod/Tazobactam (Sod 3.375 gm/ Dextrose) 50 mls @ 100 mls/hr IVPB Q8H-IV [facility]; Protocol Last Admin: 05/02/20 17:59 Dose: 100 mls/hr Documented by: Insulin Aspart (Novolog Vial Sliding Scale -) 1 vial SQ ACHS [facility]; Protocol Last Admin: 05/02/20 21:20 Dose: 8 units Documented by: Insulin Detemir (Levemir Vial) 20 units SQ HS [facility] Last Admin: 05/02/20 21:20 Dose: 20 units Documented by: Metoprolol Succinate (Toprol Xl -) 25 mg PO DAILY [facility] Last Admin: 05/02/20 09:31 Dose: 25 mg Documented by: - Objective Vital Signs: Vital Signs Temperature 99.1 F 05/02/20 13:42 Pulse Rate 56 L 05/02/20 13:42 Respiratory Rate 18 05/02/20 13:42 Blood Pressure 144/69 05/02/20 13:42 O2 Sat by Pulse Oximetry (%) 97 05/02/20 10:00 Neck: Yes: WNL, Supple Cardiovascular: Yes: WNL, Regular Rate and Rhythm Respiratory: Yes: WNL, Regular, CTA Bilaterally Gastrointestinal: Yes: WNL, Normal Bowel Sounds, Soft Labs: CBC, BMP 05/01/20 07:05 05/01/20 07:05 INR, PTT INR 1.00 (0.83-1.09) 04/30/20 03:24 Problem List - Problems (1) Pyelonephritis Assessment/Plan: Cont IV antibx Cont IVF DC planning for am Code(s): N12 - TUBULO-INTERSTITIAL NEPHRITIS, NOT SPCF ACUTE OR CHRONIC (2) Colonic mass Assessment/Plan: GI/Surgical consults noted Long d/w pt about ceccal mass and need for further management Pt is aware that she needs f/u w/ GI(Dr Guidry) as outpt for colonscopy as this maybe a malignancy Pt states that she will f/u w/ GI Code(s): K63.89 - OTHER SPECIFIED DISEASES OF INTESTINE (3) Uterine fibroid Assessment/Plan: Pt to see MOLDING MANAGER as outpt for and is aware of need to make appointment Code(s): D25.9 - LEIOMYOMA OF UTERUS, UNSPECIFIED (4) Anemia Assessment/Plan: H/H stable Code(s): D64.9 - ANEMIA, UNSPECIFIED (5) Diabetes Assessment/Plan: Cont sliding scale w/ coverage Cont levemir Code(s): E11.9 - TYPE 2 DIABETES MELLITUS WITHOUT COMPLICATIONS
[2020-05-03] MEDS ORDERED: DEXTROSE 5%-WATER - 50 ML IVPB ONE ×2 (02:37→08:56)
[2020-05-03] MEDS ORDERED: PIPERACILLIN/TAZOBACTAM 3.375 GM VIAL IVPB ONE ×2 (02:37→08:56)
[2020-05-03] MEDS: PIPERACILLIN/TAZOB 3.375 GM 3.375 GM in DEXTROSE 5%-WATER - 50 ML IVPB SCH ×2 (03:02→09:18)
[2020-05-03 06:15] VITALS: BP 143/65; PULSE 66; TEMP 97.8
[2020-05-03] MEDS: INSULIN SLIDING SCALE (NOVOLOG) 1 VIAL SQ SCH ×2 (06:37→11:29)
[2020-05-03] MEDS: ACETAMINOPHEN 325 MG TABLET (FP) PO PRN (06:38)
[2020-05-03] MEDS: HEPARIN NA (PORCINE) 5,000 UNITS/ML 1ML VIAL SQ SCH (09:17)
[2020-05-03] MEDS: metoPROLOL SUCCINATE 25 MG TAB.SR.24H (FP) PO SCH (09:18)
--- NOTE | 2020-05-03 12:57 | PN ---
Progress Note, Physician History of Present Illness: stable no new issues - Current Medication List Current Medications: Active Medications Acetaminophen (Tylenol -) 650 mg PO Q6H PRN PRN Reason: PAIN LEVEL 6-10 Last Admin: 05/03/20 06:38 Dose: 650 mg Documented by: Heparin Sodium (Porcine) (Heparin -) 5,000 unit SQ BID [facility] Last Admin: 05/03/20 09:17 Dose: 5,000 unit Documented by: Piperacillin Sod/Tazobactam (Sod 3.375 gm/ Dextrose) 50 mls @ 100 mls/hr IVPB Q8H-IV [facility]; Protocol Last Admin: 05/03/20 09:18 Dose: 100 mls/hr Documented by: Insulin Aspart (Novolog Vial Sliding Scale -) 1 vial SQ ACHS [facility]; Protocol Last Admin: 05/03/20 11:29 Dose: 4 units Documented by: Insulin Detemir (Levemir Vial) 20 units SQ HS [facility] Last Admin: 05/02/20 21:20 Dose: 20 units Documented by: Metoprolol Succinate (Toprol Xl -) 25 mg PO DAILY [facility] Last Admin: 05/03/20 09:18 Dose: 25 mg Documented by: - Objective Vital Signs: Vital Signs Temperature 97.8 F 05/03/20 06:00 Pulse Rate 66 05/03/20 06:00 Respiratory Rate 19 05/03/20 09:00 Blood Pressure 143/65 05/03/20 06:00 O2 Sat by Pulse Oximetry (%) 98 05/03/20 09:00 Constitutional: Yes: No Distress, Calm Cardiovascular: Yes: S1, S2 Respiratory: Yes: Regular, CTA Bilaterally Gastrointestinal: Yes: Normal Bowel Sounds, Soft Musculoskeletal: Yes: WNL Extremities: Yes: WNL Neurological: Yes: Alert, Oriented Psychiatric: Yes: Alert, Oriented Labs: CBC, BMP 05/01/20 07:05 05/01/20 07:05 INR, PTT INR 1.00 (0.83-1.09) 04/30/20 03:24 Assessment/Plan roblem List - Problems abd pain (2) Colonic mass Code(s): K63.89 - OTHER SPECIFIED DISEASES OF INTESTINE (3) Uterine fibroid Code(s): D25.9 - LEIOMYOMA OF UTERUS, UNSPECIFIED (4) Anemia Code(s): D64.9 - ANEMIA, UNSPECIFIED (5) Diabetes Code(s): E11.9 - TYPE 2 DIABETES MELLITUS WITHOUT COMPLICATIONS cecal mass plan all work up noted cx results noted can stop all abx rest as per the team
--- NOTE | 2020-05-03 14:42 | PN.GI ---
GI Progress Note Subjective: Pt denies abdominal pain, N/V. Had a BM today. Tolerating diet. - Objective Vital Signs: Vital Signs Temperature 97.8 F 05/03/20 06:00 Pulse Rate 66 05/03/20 06:00 Respiratory Rate 19 05/03/20 09:00 Blood Pressure 143/65 05/03/20 06:00 O2 Sat by Pulse Oximetry (%) 98 05/03/20 09:00 Constitutional: Well Nourished, No Distress, Calm Eyes: Yes: WNL, Conjunctiva Clear, EOM Intact HENT: Yes: WNL, Atraumatic, Normocephalic Neck: Yes: WNL, Supple, Trachea Midline Cardiovascular: Yes: WNL, Regular Rate and Rhythm Respiratory: Yes: WNL, Regular, CTA Bilaterally Gastrointestinal Inspection: Yes: WNL ...Auscultate: Yes: Normoactive Bowel Sounds ...Palpate: Yes: Soft. No: Firm/Rigid, Guarding, Hepatomegaly, Mass, Pulsatile Mass, Splenomegaly, Tenderness, Tenderness, Epigastium, Tenderness, Rebound Labs: CBC, BMP 05/01/20 07:05 05/01/20 07:05 INR, PTT INR 1.00 (0.83-1.09) 04/30/20 03:24 Problem List - Problems (1) Cecum mass Assessment/Plan: plan discussed with Dr Guidry. - cecal mass r/o adenocarcinoma - CEA levels- 8.4 high - GI work up, colonoscopy as out patient - pt made aware to follow up Code(s): K63.89 - OTHER SPECIFIED DISEASES OF INTESTINE
== END 2020-05-03 15:03 | disposition home or self-care (01) | DRG 395 ==
LOC: JER 01:12 → JERBED 05:00 → J6S 10:04
PROVIDERS: ADMIT Internal Medicine; ATTEND Internal Medicine
DX: K63.89 Other specified diseases of intestine (principal); E11.9 Type 2 diabetes mellitus without complications; D64.9 Anemia, unspecified; D25.9 Leiomyoma of uterus, unspecified; E78.5 Hyperlipidemia, unspecified
CPT/HCPCS: 36415; 74177-TC; 76830-TC; 80053; 81003; 82378; 82962; 85025; 85610; 85730; 87086; 99285-25; C9803; J1644; Q9967; U0003

== ENCOUNTER → 2020-07-02 | Day surgery (SDC) | payer BC, OTHER ==
[~2020-07-02] MED LIST: ACETAMINOPHEN 1000 MG/100 ML VIAL (NON FORMULARY) IVPB ONE; ACETAMINOPHEN INJECTION 100 ML IVPB ONE; ALVIMOPAN 12 MG CAP PO ONE; ENOXAPARIN NA (PORCINE) 40 MG/0.4 ML DISP.SYRIN SQ ONE; ERTAPENEM SODIUM 1 GM VIAL ONE; ERTAPENEM SODIUM 1 GM in SODIUM CHLORIDE 50 ML IVPB ONE; GABAPENTIN 300 MG CAPSULE PO ONE; ROPIVACAINE HCL 0.5% 30ML VIAL ONE
[2020-07-02 11:41] VITALS: BP 130/60; PULSE 62; TEMP 97.3; BMI 29.0
== END | disposition home or self-care (01) ==
LOC: UNDOADMIN 11:07 → J2C 11:07 → JASU-SURG 11:08 → EDSTATUS 11:30
PROVIDERS: ATTEND Surgery
DX: Z53.8 Procedure and treatment not carried out for other reasons (principal)
CPT/HCPCS: 36415; 82947; 86850; 86900; 86901; J0131

== ENCOUNTER 2020-07-04 08:57 | Inpatient (IN) | payer BC, OTHER ==
[2020-07-04 15:07] VITALS: BMI 29.0
[2020-07-05] MEDS ORDERED: ALVIMOPAN 12 MG CAP PO ONE ×3 (07:00→22:00)
[2020-07-05] MEDS ORDERED: GABAPENTIN 300 MG CAPSULE PO ONE ×2 (07:00→07:38)
[2020-07-05] MEDS ORDERED: ACETAMINOPHEN 1000 MG/100 ML BAG IVPB ONE (07:00)
[2020-07-05] MEDS ORDERED: ENOXAPARIN NA (PORCINE) 40 MG/0.4 ML DISP.SYRIN SQ ONE ×2 (07:00→07:45)
[2020-07-05] MEDS ORDERED: ERTAPENEM SODIUM 1 GM in SODIUM CHLORIDE 50 ML IVPB ONE (07:00)
[2020-07-05] MEDS ORDERED: PROPOFOL 20 ML ONE (08:09)
[2020-07-05] MEDS ORDERED: ROCURONIUM BROMIDE 50 MG/5 ML SYRINGE ONE ×2 (08:09→09:26)
[2020-07-05] MEDS ORDERED: MIDAZOLAM HCL 2 MG/2 ML SINGLE DOSE VIAL ONE ×2 (08:10)
[2020-07-05] MEDS ORDERED: LIDOCAINE HCL/PF 2% SDV 5ML VIAL ONE (08:11)
[2020-07-05] MEDS ORDERED: ERTAPENEM SODIUM 1 GM VIAL IVPB ONE ×2 (08:40→08:52)
[2020-07-05] MEDS ORDERED: SODIUM CHLORIDE 0.9% P/F 10 ML VIAL IJ ONE (08:51)
[2020-07-05] MEDS ORDERED: ePHEDrine SULFATE 50 MG/1 ML AMPULE ONE (09:25)
[2020-07-05] MEDS ORDERED: GLYCOPYRROLATE 0.2 MG/1 ML VIAL ONE (12:27)
[2020-07-05] MEDS ORDERED: NEOSTIGMINE METHYLSULFATE 0.5 MG/ML - 10 ML MDV ONE (12:27)
[2020-07-05] MEDS ORDERED: BUPIVACAINE HCL/PF 0.5% (5 MG/ML) 30 ML VIAL IJ ONE (12:35)
[2020-07-05] MEDS ORDERED: BUPIVACAINE LIPOSOME/PF (EXPAREL) 266 MG/20 ML VIAL NR ONE (12:35)
[2020-07-05] MEDS ORDERED: KETOROLAC TROMETHAMINE 30 MG/1 ML VIAL ONE (12:36)
[2020-07-05] MEDS ORDERED: METOPROLOL TARTRATE 5 MG/5 ML VIAL ONE (12:42)
[2020-07-05] MEDS ORDERED: ONDANSETRON 4 MG/2 ML VIAL IVPUSH PRN ×2 (12:52→13:12)
[2020-07-05] MEDS ORDERED: PROMETHAZINE HCL 25 MG/1 ML VIAL IVPUSH PRN (12:52)
[2020-07-05] MEDS ORDERED: LACTATED RINGERS SOLUTION 1,000 ML IV SCH (13:00)
[2020-07-05] MEDS ORDERED: oxyCODONE HCL 5 MG TABLET PO PRN (13:01)
[2020-07-05] MEDS: SODIUM CHLORIDE 1,000 ML IV SCH (15:15)
[2020-07-05] MEDS: ACETAMINOPHEN 1000 MG/100 ML BAG IVPB SCH (17:40)
[2020-07-05] MEDS: INSULIN SLIDING SCALE (NOVOLOG) 1 VIAL SQ SCH ×2 (18:08→23:20)
[2020-07-05] MEDS ORDERED: PT OWN MED DRAWER 7, Y5N ONE (22:10)
[2020-07-05] MEDS: GABAPENTIN 100 MG CAPSULE PO SCH (23:19)
[2020-07-05] MEDS: ALVIMOPAN 12 MG CAP PO SCH (23:20)
[2020-07-06] MEDS: oxyCODONE HCL 5 MG TABLET PO PRN (05:27)
[2020-07-06] MEDS: ACETAMINOPHEN 1000 MG/100 ML BAG IVPB SCH ×2 (06:34)
[2020-07-06] MEDS: GABAPENTIN 100 MG CAPSULE PO SCH ×3 (06:35→22:47)
[2020-07-06] MEDS: INSULIN SLIDING SCALE (NOVOLOG) 1 VIAL SQ SCH ×4 (06:38→22:48)
[2020-07-06] MEDS ORDERED: PT OWN MED DRAWER 7, Y5N ONE ×2 (09:43→22:37)
[2020-07-06] MEDS: ALVIMOPAN 12 MG CAP PO SCH ×2 (09:52→22:48)
[2020-07-06] MEDS: LOSARTAN POTASSIUM 50 MG TABLET PO SCH (09:52)
[2020-07-06] MEDS ORDERED: ENOXAPARIN NA (PORCINE) 40 MG/0.4 ML DISP.SYRIN SQ SCH (10:00)
[2020-07-06 13:12] LABS: BASO % 0.4 % (0-2.0); EOS % 0.4 % (0-4.5); HEMATOCRIT 23.9 % (32.4-45.2); HEMOGLOBIN 7.9 GM/dL (10.7-15.3); LYMPH % 21.3 % (8-40); MCH 26.2 pg (25.7-33.7); MCHC 32.9 g/dl (32.0-36.0); MEAN CELL VOLUME 79.6 fl (80-96); MEAN PLT VOLUME 9.1 fl (7.5-11.1); MONO % 12.1 % (3.8-10.2); NEUT % 65.8 % (42.8-82.8); PLATELET COUNT 196 K/MM3 (134-434); RDW 16.9 % (11.6-15.6); WHITE BLOOD COUNT 7.9 K/mm3 (4.0-10.0)
[2020-07-06] MEDS: SODIUM CHLORIDE 1,000 ML IV SCH ×2 (13:25→16:40)
[2020-07-06 13:38] LABS: ALBUMIN 2.3 g/dl (3.4-5.0); BLOOD UREA NITROGEN 7.3 mg/dL (7-18); CALCIUM 7.6 mg/dL (8.5-10.1)
[2020-07-06 13:41] LABS: CREATININE 0.7 mg/dL (0.55-1.3)
[2020-07-06 13:43] LABS: BILIRUBIN,TOTAL 1.5 mg/dL (0.2-1)
[2020-07-06] MEDS: IBUPROFEN 800 MG/8 ML IJ IVPB PRN (15:45)
[2020-07-07] MEDS: IBUPROFEN 800 MG/8 ML IJ IVPB PRN (02:52)
[2020-07-07] MEDS: INSULIN SLIDING SCALE (NOVOLOG) 1 VIAL SQ SCH ×4 (07:02→21:21)
[2020-07-07] MEDS: GABAPENTIN 100 MG CAPSULE PO SCH ×3 (07:02→21:21)
[2020-07-07] MEDS: ACETAMINOPHEN 650 MG/20.3 ML ORAL SOLUTION (CUPS) PO SCH ×2 (08:07→16:56)
[2020-07-07 09:08] LABS: BASO % 0.4 % (0-2.0); EOS % 1.8 % (0-4.5); HEMATOCRIT 22.1 % (32.4-45.2); HEMOGLOBIN 7.3 GM/dL (10.7-15.3); MCH 26.3 pg (25.7-33.7); MCHC 32.8 g/dl (32.0-36.0); MONO % 13.4 % (3.8-10.2); NEUT % 64.4 % (42.8-82.8); PLATELET COUNT 174 K/MM3 (134-434); RBC 2.76 M/mm3 (3.60-5.2); RDW 16.3 % (11.6-15.6); WHITE BLOOD COUNT 7.7 K/mm3 (4.0-10.0)
[2020-07-07 09:56] LABS: ALBUMIN 2.2 g/dl (3.4-5.0); BLOOD UREA NITROGEN 5.6 mg/dL (7-18)
[2020-07-07 09:59] LABS: CALCIUM 7.6 mg/dL (8.5-10.1)
[2020-07-07 10:03] LABS: CREATININE 0.5 mg/dL (0.55-1.3)
[2020-07-07 10:04] LABS: TOT PROT 4.6 g/dl (6.4-8.2)
[2020-07-07] MEDS ORDERED: PT OWN MED DRAWER 7, Y5N ONE ×2 (10:06→21:12)
[2020-07-07] MEDS: ALVIMOPAN 12 MG CAP PO SCH ×2 (10:08→21:21)
[2020-07-07] MEDS: LOSARTAN POTASSIUM 50 MG TABLET PO SCH (10:08)
[2020-07-07 10:13] LABS: BILIRUBIN,TOTAL 0.7 mg/dL (0.2-1)
[2020-07-07 13:38] LABS: HEMOGLOBIN 7.7 GM/dL (10.7-15.3); MCH 25.6 pg (25.7-33.7); MCHC 32.1 g/dl (32.0-36.0); MEAN CELL VOLUME 79.8 fl (80-96); MEAN PLT VOLUME 9.4 fl (7.5-11.1); PLATELET COUNT 201 K/MM3 (134-434); RDW 16.7 % (11.6-15.6); WHITE BLOOD COUNT 9.1 K/mm3 (4.0-10.0)
[2020-07-07] MEDS ORDERED: INSULIN (NOVOLOG) ASPART 100 UNITS/ML 10ML VIAL ONE (14:15)
[2020-07-07] MEDS: oxyCODONE HCL 5 MG TABLET PO PRN (21:20)
[2020-07-08] MEDS: ACETAMINOPHEN 650 MG/20.3 ML ORAL SOLUTION (CUPS) PO SCH ×2 (00:41→09:32)
[2020-07-08] MEDS: GABAPENTIN 100 MG CAPSULE PO SCH ×2 (06:40→15:51)
[2020-07-08] MEDS: INSULIN SLIDING SCALE (NOVOLOG) 1 VIAL SQ SCH ×2 (06:40→11:57)
[2020-07-08] MEDS: LOSARTAN POTASSIUM 50 MG TABLET PO SCH (09:31)
[2020-07-08 14:12] VITALS: BP 136/57; PULSE 71; TEMP 98.7
[2020-07-08] MEDS: oxyCODONE HCL 5 MG TABLET PO PRN (15:49)
== END 2020-07-08 16:00 | disposition home or self-care (01) | DRG 330 ==
LOC: J2C 07-05 04:16 → J6S 07-05 18:05
PROVIDERS: ADMIT Internal Medicine; ATTEND Internal Medicine
PROC: 0DTH4ZZ Resection of Cecum, Percutaneous Endoscopic Approach (ICD-10-PCS; principal; 2020-07-05)
PROC: 0DNU3ZZ Release Omentum, Percutaneous Approach (ICD-10-PCS; 2020-07-05)
PROC: 0KN Muscles, Release (ICD-10-PCS; 2020-07-05)
PROC: 0WQF4ZZ Repair Abdominal Wall, Percutaneous Endoscopic Approach (ICD-10-PCS; 2020-07-05)
DX: C18.0 Malignant neoplasm of cecum (principal); K43.6 Other and unspecified ventral hernia with obstruction, without gangrene; K66.0 Peritoneal adhesions (postprocedural) (postinfection); D64.9 Anemia, unspecified; E11.9 Type 2 diabetes mellitus without complications; I10 Essential (primary) hypertension
CPT/HCPCS: 36415; 80053; 82962; 85025; 85027; 86850; 86900; 86901; 86922; 88302-TC; 88309-TC; 94010; 94760; C9803; J0131; U0003

== ENCOUNTER 2020-08-14 04:42 | Day surgery (SDC) | payer BC, OTHER ==
[2020-08-13 14:59] VITALS: BMI 28.1
[2020-08-14] MEDS ORDERED: MIDAZOLAM HCL 2 MG/2 ML SINGLE DOSE VIAL IVPUSH ONE ×2 (13:07→13:30)
[2020-08-14 15:55] VITALS: BP 137/63; PULSE 61; TEMP 97.7
== END 2020-08-14 16:05 | disposition home or self-care (01) ==
LOC: JRADIR 04:42
PROVIDERS: ATTEND Internal Medicine Hematology & Oncology
PROC: 0JH63WZ Insertion of Totally Implantable Vascular Access Device into Chest Subcutaneous Tissue and Fascia, Percutaneous Approach (ICD-10-PCS; principal; 2020-08-14)
PROC: 02HV33Z Insertion of Infusion Device into Superior Vena Cava, Percutaneous Approach (ICD-10-PCS; 2020-08-14)
PROC: B518ZZA Fluoroscopy of Superior Vena Cava, Guidance (ICD-10-PCS; 2020-08-14)
DX: C18.9 Malignant neoplasm of colon, unspecified (principal)
CPT/HCPCS: 36561; C1788; 77001-TC-FY; 82962

== ENCOUNTER 2020-08-15 07:05 | Day surgery (SDC) | payer BC ==
[2020-08-15] MEDS ORDERED: SODIUM CHLORIDE 250 ML IV ONE (09:00)
[2020-08-15] MEDS ORDERED: PALONOSETRON HCL 0.25 MG/5 ML VIAL IVPUSH ONE (10:00)
[2020-08-15] MEDS ORDERED: DEXAMETHASONE SODIUM PHOSPHATE 10 MG in SODIUM CHLORIDE 50 ML IVPB ONE (10:00)
[2020-08-15 10:10] LABS: BASO % 0.5 % (0-2.0); EOS % 1.2 % (0-4.5); HEMATOCRIT 38.5 % (32.4-45.2); HEMOGLOBIN 12.5 GM/dL (10.7-15.3); LYMPH % 30.7 % (8-40); MCH 24.9 pg (25.7-33.7); MCHC 32.6 g/dl (32.0-36.0); MEAN CELL VOLUME 76.4 fl (80-96); MEAN PLT VOLUME 9.8 fl (7.5-11.1); NEUT % 59.6 % (42.8-82.8); PLATELET COUNT 245 K/MM3 (134-434); RBC 5.03 M/mm3 (3.60-5.2); RDW 18.3 % (11.6-15.6); WHITE BLOOD COUNT 7.2 K/mm3 (4.0-10.0)
[2020-08-15 10:17] LABS: POTASSIUM 4.3 mmol/L (3.5-5.1)
[2020-08-15 10:19] LABS: CALCIUM 9.4 mg/dL (8.5-10.1)
[2020-08-15 10:20] LABS: ALBUMIN 3.8 g/dl (3.4-5.0); BLOOD UREA NITROGEN 12.9 mg/dL (7-18); MAGNESIUM 2.2 mg/dL (1.8-2.4)
[2020-08-15 10:23] LABS: BILIRUBIN,DIRECT 0.2 mg/dL (0.0-0.2); CREATININE 0.8 mg/dL (0.55-1.3)
[2020-08-15 10:24] LABS: BILIRUBIN,TOTAL 0.8 mg/dL (0.2-1)
[2020-08-15 10:25] LABS: TOT PROT 7.6 g/dl (6.4-8.2)
[2020-08-15] MEDS ORDERED: FAMOTIDINE 20 MG/50 ML IVPB 20 MG/50 ML MG IVPB ONE (10:30)
[2020-08-15] MEDS ORDERED: OXALIPLATIN 100 MG, OXALIPLATIN 45 MG in DEXTROSE 5%-WATER - 500 ML IV ONE (10:30)
[2020-08-15] MEDS ORDERED: LEUCOVORIN INJECTION - 684 MG in DEXTROSE 5%-WATER - 250 ML IVPB ONE (10:30)
[2020-08-15] MEDS ORDERED: FLUOROURACIL 2,500 MG/50 ML VIAL IVPUSH ONE (12:30)
[2020-08-15] MEDS ORDERED: FLUOROURACIL 4,100 MG in SODIUM CHLORIDE 10 ML CP ONE (12:45)
[2020-08-15] MEDS ORDERED: INSULIN (NOVOLOG) ASPART 100 UNITS/ML 10ML VIAL SQ ONE (13:15)
[2020-08-15] MEDS ORDERED: INSULIN SLIDING SCALE (NOVOLOG) 1 VIAL SQ SCH (16:30)
[2020-08-15 17:25] VITALS: BP 145/52; PULSE 61; TEMP 98.1
[2020-08-15] MEDS ORDERED: PORTA CATH FLUSH 10 ML IVPUSH ONE (17:25)
[2020-08-15 20:11] LABS: EPI CELLS 13 /uL (0-25.1); HYALINE CASTS 0 /uL (0-3.1); PH,URINE 5.5 (5.0-8.0); URINE APPEARANCE CLOUDY; URINE BACTERIA >9,000 /uL (0-1359); URINE BILIRUBIN NEGATIVE (NEGATIVE); URINE COLOR YELLOW; URINE GLUCOSE (UA) 3+ (NEGATIVE); URINE KETONE NEGATIVE (NEGATIVE); URINE LEUK ESTERASE 2+ (NEGATIVE); URINE NITRITE POSITIVE (NEGATIVE); URINE PROTEIN NEGATIVE (NEGATIVE); URINE RBC 21 /uL (0-23.9); URINE UROBILINOGEN 0.2 mg/dL (0.2-1.0); URINE WBC 115 /uL (0-25.8)
== END 2020-08-15 20:20 | disposition home or self-care (01) ==
LOC: JONCCHEMO 07:05
PROVIDERS: ATTEND Internal Medicine Hematology & Oncology
DX: Z51.11 Encounter for antineoplastic chemotherapy (principal); C18.9 Malignant neoplasm of colon, unspecified
CPT/HCPCS: 36415; 80048; 80076; 81003; 83735; 85025; 86704; 86803; 87086; 87186; 87340; 87350; 96361; 96366; 96367; 96375; 96413; 96415; G0498; J2469; J9263

== ENCOUNTER 2020-08-17 06:10 | Day surgery (SDC) | payer BC ==
[2020-08-17] MEDS ORDERED: SODIUM CHLORIDE 500 ML IV ONE (13:00)
[2020-08-17] MEDS ORDERED: SODIUM CHLORIDE IVPB ONE (13:30)
[2020-08-17] MEDS ORDERED: ONDANSETRON IVPB ONE (13:30)
[2020-08-17] MEDS ORDERED: DEXAMETHASONE IVPB ONE (13:30)
[2020-08-17 17:29] VITALS: BP 130/62; PULSE 64; TEMP 98.2
== END 2020-08-17 14:00 | disposition home or self-care (01) ==
LOC: JONCNONCHE 06:10
PROVIDERS: ATTEND Internal Medicine Hematology & Oncology
PROC: 3E043GC Introduction of Other Therapeutic Substance into Central Vein, Percutaneous Approach (ICD-10-PCS; principal; 2020-08-17)
PROC: 3E043GC Introduction of Other Therapeutic Substance into Central Vein, Percutaneous Approach (ICD-10-PCS; 2020-08-17)
DX: C18.9 Malignant neoplasm of colon, unspecified (principal); Z76.89 Persons encountering health services in other specified circumstances
CPT/HCPCS: 96361; 96365; J1100

== ENCOUNTER 2020-09-03 06:49 | Day surgery (SDC) | payer BC ==
[~2020-09-03 06:49] MED LIST changes: -ACETAMINOPHEN 1000 MG/100 ML VIAL (NON FORMULARY) IVPB ONE; -ACETAMINOPHEN INJECTION 100 ML IVPB ONE; -ALVIMOPAN 12 MG CAP PO ONE; +DEXAMETHASONE SODIUM PHOSPHATE 10 MG in SODIUM CHLORIDE 50 ML IVPB ONE; -ENOXAPARIN NA (PORCINE) 40 MG/0.4 ML DISP.SYRIN SQ ONE; -ERTAPENEM SODIUM 1 GM VIAL ONE; -ERTAPENEM SODIUM 1 GM in SODIUM CHLORIDE 50 ML IVPB ONE; +FAMOTIDINE 20 MG/50 ML IVPB 20 MG/50 ML MG IVPB ONE; +FLUOROURACIL 2,500 MG/50 ML VIAL IVPUSH ONE; +FLUOROURACIL 4,100 MG in SODIUM CHLORIDE 10 ML CP ONE; -GABAPENTIN 300 MG CAPSULE PO ONE; +LEUCOVORIN INJECTION - 684 MG in DEXTROSE 5%-WATER - 250 ML IVPB ONE; +OXALIPLATIN 100 MG, OXALIPLATIN 45 MG in DEXTROSE 5%-WATER - 500 ML IV ONE; +PALONOSETRON HCL 0.25 MG/5 ML VIAL IVPUSH ONE; -ROPIVACAINE HCL 0.5% 30ML VIAL ONE; +SODIUM CHLORIDE 250 ML IV ONE
[2020-09-03 08:56] LABS: EOS % 6.6 % (0-4.5); HEMATOCRIT 35.6 % (32.4-45.2); HEMOGLOBIN 11.7 GM/dL (10.7-15.3); LYMPH % 34.9 % (8-40); MCH 24.7 pg (25.7-33.7); MEAN CELL VOLUME 75.1 fl (80-96); MEAN PLT VOLUME 8.8 fl (7.5-11.1); MONO % 19.5 % (3.8-10.2); PLATELET COUNT 241 K/MM3 (134-434); RBC 4.74 M/mm3 (3.60-5.2); RDW 18.1 % (11.6-15.6); WHITE BLOOD COUNT 5.5 K/mm3 (4.0-10.0)
[2020-09-03] MEDS ORDERED: SODIUM CHLORIDE 250 ML IV ONE (09:00)
[2020-09-03 09:12] LABS: POTASSIUM 4.6 mmol/L (3.5-5.1)
[2020-09-03 09:16] LABS: ALBUMIN 3.4 g/dl (3.4-5.0); BLOOD UREA NITROGEN 16.5 mg/dL (7-18); CALCIUM 9.2 mg/dL (8.5-10.1); MAGNESIUM 2.2 mg/dL (1.8-2.4)
[2020-09-03 09:19] LABS: BILIRUBIN,DIRECT 0.1 mg/dL (0.0-0.2)
[2020-09-03 09:20] LABS: BILIRUBIN,TOTAL 0.5 mg/dL (0.2-1)
[2020-09-03 09:21] LABS: TOT PROT 7.1 g/dl (6.4-8.2)
[2020-09-03] MEDS ORDERED: DEXAMETHASONE SODIUM PHOSPHATE 10 MG in SODIUM CHLORIDE 50 ML IVPB ONE (09:30)
[2020-09-03] MEDS ORDERED: FAMOTIDINE 20 MG/50 ML IVPB 20 MG/50 ML MG IVPB ONE (09:30)
[2020-09-03] MEDS ORDERED: PALONOSETRON HCL 0.25 MG/5 ML VIAL IVPUSH ONE (09:30)
[2020-09-03 09:40] VITALS: TEMP 98.3
[2020-09-03] MEDS ORDERED: PORTA CATH FLUSH 10 ML IVPUSH ONE (09:42)
[2020-09-03] MEDS ORDERED: OXALIPLATIN 100 MG, OXALIPLATIN 45 MG in DEXTROSE 5%-WATER - 500 ML IV ONE (10:00)
[2020-09-03] MEDS ORDERED: LEUCOVORIN INJECTION - 684 MG in DEXTROSE 5%-WATER - 250 ML IVPB ONE (10:00)
[2020-09-03] MEDS ORDERED: FLUOROURACIL 2,500 MG/50 ML VIAL IVPUSH ONE (12:00)
[2020-09-03] MEDS ORDERED: FLUOROURACIL 4,100 MG in SODIUM CHLORIDE 10 ML CP ONE (12:15)
[2020-09-03] MEDS ORDERED: INSULIN (NOVOLOG) ASPART 100 UNITS/ML 10ML VIAL SQ ONE (13:15)
[2020-09-03] MEDS ORDERED: ACETAMINOPHEN 325 MG TABLET (FP) PO PRN (14:01)
[2020-09-03 17:46] VITALS: BP 144/58; PULSE 67
== END 2020-09-03 15:15 | disposition home or self-care (01) ==
LOC: JONCCHEMO 06:49
PROVIDERS: ATTEND Internal Medicine Hematology & Oncology
DX: Z51.11 Encounter for antineoplastic chemotherapy (principal); C18.0 Malignant neoplasm of cecum; M25.562 Pain in left knee
CPT/HCPCS: 36415; 73560-TC-LT-FY; 73560-TC-RT-FY; 80048; 80076; 82962; 83735; 85025; 87086; 96361; 96366; 96367; 96375; 96413; 96415; G0498; J2469; J9263

== ENCOUNTER 2020-09-05 07:12 | Day surgery (SDC) | payer BC ==
[~2020-09-05 07:12] MED LIST changes: +D5-1/2NS+20 MEQ KCL - 20 MEQ/1,000 ML INFUS.BAG IV ONE; -DEXAMETHASONE SODIUM PHOSPHATE 10 MG in SODIUM CHLORIDE 50 ML IVPB ONE; +DEXAMETHASONE SODIUM PHOSPHATE 4 MG, ONDANSETRON INJECTION 8 MG in SODIUM CHLORIDE 100 ML IVPB ONE; -FAMOTIDINE 20 MG/50 ML IVPB 20 MG/50 ML MG IVPB ONE; -FLUOROURACIL 2,500 MG/50 ML VIAL IVPUSH ONE; -FLUOROURACIL 4,100 MG in SODIUM CHLORIDE 10 ML CP ONE; -LEUCOVORIN INJECTION - 684 MG in DEXTROSE 5%-WATER - 250 ML IVPB ONE; +MAGNESIUM 1GM/D5W - 1 GM/100 ML IVPB IVPB ONE; -OXALIPLATIN 100 MG, OXALIPLATIN 45 MG in DEXTROSE 5%-WATER - 500 ML IV ONE; -PALONOSETRON HCL 0.25 MG/5 ML VIAL IVPUSH ONE; -SODIUM CHLORIDE 250 ML IV ONE
[2020-09-05] MEDS ORDERED: MAGNESIUM 1GM/D5W - 1 GM/100 ML IVPB IVPB ONE (09:00)
[2020-09-05] MEDS ORDERED: D5-1/2NS+20 MEQ KCL - 20 MEQ/1,000 ML INFUS.BAG IV ONE (09:00)
[2020-09-05] MEDS ORDERED: DEXAMETHASONE SODIUM PHOSPHATE 4 MG, ONDANSETRON INJECTION 8 MG in SODIUM CHLORIDE 100 ML IVPB ONE (10:00)
[2020-09-05 17:19] VITALS: TEMP 98.2
[2020-09-05 17:50] VITALS: BP 157/66; PULSE 59
== END 2020-09-05 14:50 | disposition home or self-care (01) ==
LOC: JONCNONCHE 07:12
PROVIDERS: ATTEND Internal Medicine Hematology & Oncology
PROC: 3E043GC Introduction of Other Therapeutic Substance into Central Vein, Percutaneous Approach (ICD-10-PCS; principal; 2020-09-05)
PROC: 3E043GC Introduction of Other Therapeutic Substance into Central Vein, Percutaneous Approach (ICD-10-PCS; 2020-09-05)
DX: C18.0 Malignant neoplasm of cecum (principal); Z76.89 Persons encountering health services in other specified circumstances
CPT/HCPCS: 96361; 96365; J2405

== ENCOUNTER 2020-09-06 07:32 | Day surgery (SDC) | payer BC ==
[2020-09-06] MEDS ORDERED: D5-1/2NS+20 MEQ KCL - 20 MEQ/1,000 ML INFUS.BAG IV ONE (09:00)
[2020-09-06] MEDS ORDERED: MAGNESIUM 1GM/D5W - 1 GM/100 ML IVPB IVPB ONE (09:00)
[2020-09-06] MEDS ORDERED: DEXAMETHASONE INJECTION 4 MG, ONDANSETRON INJECTION 8 MG in SODIUM CHLORIDE 100 ML IVPB ONE (09:15)
[2020-09-06 16:52] VITALS: TEMP 98.6
[2020-09-06 17:06] VITALS: BP 141/56; PULSE 68
== END 2020-09-06 15:00 | disposition home or self-care (01) ==
LOC: JONCNONCHE 07:32
PROVIDERS: ATTEND Internal Medicine Hematology & Oncology
PROC: 3E043GC Introduction of Other Therapeutic Substance into Central Vein, Percutaneous Approach (ICD-10-PCS; principal; 2020-09-06)
PROC: 3E043GC Introduction of Other Therapeutic Substance into Central Vein, Percutaneous Approach (ICD-10-PCS; 2020-09-06)
DX: C18.0 Malignant neoplasm of cecum (principal); E11.9 Type 2 diabetes mellitus without complications; Z79.4 Long term (current) use of insulin; Z76.89 Persons encountering health services in other specified circumstances
CPT/HCPCS: 96365; 96368; J1100

== ENCOUNTER 2020-10-01 07:26 | Day surgery (SDC) | payer BC ==
[2020-10-01 08:54] LABS: BASO % 0.8 % (0-2.0); EOS % 2.3 % (0-4.5); HEMATOCRIT 37.3 % (32.4-45.2); HEMOGLOBIN 12.3 GM/dL (10.7-15.3); LYMPH % 26.6 % (8-40); MCHC 33.1 g/dl (32.0-36.0); MEAN CELL VOLUME 75.5 fl (80-96); MEAN PLT VOLUME 9.4 fl (7.5-11.1); MONO % 11.1 % (3.8-10.2); NEUT % 59.2 % (42.8-82.8); PLATELET COUNT 218 K/MM3 (134-434); RBC 4.94 M/mm3 (3.60-5.2); WHITE BLOOD COUNT 9.3 K/mm3 (4.0-10.0)
[2020-10-01] MEDS ORDERED: SODIUM CHLORIDE 250 ML IV ONE (09:00)
[2020-10-01 09:09] LABS: POTASSIUM 4.3 mmol/L (3.5-5.1)
[2020-10-01 09:10] LABS: CALCIUM 9.2 mg/dL (8.5-10.1)
[2020-10-01 09:11] LABS: ALBUMIN 3.4 g/dl (3.4-5.0); BLOOD UREA NITROGEN 13.7 mg/dL (7-18); MAGNESIUM 1.9 mg/dL (1.8-2.4)
[2020-10-01 09:14] LABS: BILIRUBIN,DIRECT 0.2 mg/dL (0.0-0.2); CREATININE 0.8 mg/dL (0.55-1.3)
[2020-10-01 09:16] LABS: BILIRUBIN,TOTAL 0.6 mg/dL (0.2-1); TOT PROT 6.9 g/dl (6.4-8.2)
[2020-10-01] MEDS ORDERED: DEXAMETHASONE SODIUM PHOSPHATE 8 MG in SODIUM CHLORIDE 50 ML IVPB ONE (10:00)
[2020-10-01] MEDS ORDERED: PALONOSETRON HCL 0.25 MG/5 ML VIAL IVPUSH ONE (10:00)
[2020-10-01] MEDS ORDERED: FAMOTIDINE 20 MG/50 ML IVPB 20 MG/50 ML MG IVPB ONE (10:00)
[2020-10-01] MEDS ORDERED: WATER IVPB ONE (10:30)
[2020-10-01] MEDS ORDERED: DEXTROSE 5% IVPB ONE (10:30)
[2020-10-01] MEDS ORDERED: LEUCOVORIN IVPB ONE (10:30)
[2020-10-01] MEDS ORDERED: OXALIPLATIN 140 MG in DEXTROSE 5%-WATER - 500 ML IV ONE (10:30)
[2020-10-01] MEDS ORDERED: INSULIN (NOVOLOG) ASPART 100 UNITS/ML 10ML VIAL SQ ONE ×2 (11:00→13:11)
[2020-10-01] MEDS ORDERED: FLUOROURACIL 2,500 MG/50 ML VIAL IVPUSH ONE (12:30)
[2020-10-01] MEDS ORDERED: SODIUM CHLORIDE CP ONE (12:45)
[2020-10-01] MEDS ORDERED: FLUOROURACIL CP ONE (12:45)
[2020-10-01 14:24] VITALS: TEMP 97.7
[2020-10-01 14:26] VITALS: BP 163/64; PULSE 58
== END 2020-10-01 13:50 | disposition home or self-care (01) ==
LOC: JONCCHEMO 07:26
PROVIDERS: ATTEND Internal Medicine Hematology & Oncology
DX: Z51.11 Encounter for antineoplastic chemotherapy (principal); C18.0 Malignant neoplasm of cecum; E11.9 Type 2 diabetes mellitus without complications; Z79.4 Long term (current) use of insulin
CPT/HCPCS: 36415; 80048; 80076; 82962; 83735; 85025; 93971-TC; 96361; 96366; 96367; 96375; 96413; 96415; G0498; J2469; J9263

== ENCOUNTER 2020-10-03 07:00 | Day surgery (SDC) | payer BC ==
[2020-10-03] MEDS ORDERED: DEXAMETHASONE SODIUM PHOSPHATE 4 MG, ONDANSETRON INJECTION 8 MG in SODIUM CHLORIDE 100 ML IVPB ONE (11:30)
[2020-10-03] MEDS ORDERED: POTASSIUM CHLORIDE 20 MEQ, MAGNESIUM SULFATE 1 GM in DEXTROSE 5%-0.45% SALINE 1,000 ML IV ONE (12:00)
[2020-10-03 15:15] VITALS: TEMP 98.3
[2020-10-03 15:19] VITALS: BP 159/64; PULSE 71
== END 2020-10-03 15:10 | disposition home or self-care (01) ==
LOC: JONCNONCHE 07:00
PROVIDERS: ATTEND Internal Medicine Hematology & Oncology
PROC: 3E043GC Introduction of Other Therapeutic Substance into Central Vein, Percutaneous Approach (ICD-10-PCS; principal; 2020-10-03)
PROC: 3E043GC Introduction of Other Therapeutic Substance into Central Vein, Percutaneous Approach (ICD-10-PCS; 2020-10-03)
DX: C18.0 Malignant neoplasm of cecum (principal); E11.9 Type 2 diabetes mellitus without complications; Z79.4 Long term (current) use of insulin
CPT/HCPCS: 96361; 96365; J2405

== ENCOUNTER 2020-10-07 20:25 | Emergency (ER) | payer BC ==
[2020-10-07 20:42] VITALS: TEMP 98.8; BMI 26.4
[2020-10-07 21:53] LABS: BASO % 0.4 % (0-2.0); HEMATOCRIT 36.9 % (32.4-45.2); HEMOGLOBIN 12.1 GM/dL (10.7-15.3); LYMPH % 28.6 % (8-40); MCH 24.6 pg (25.7-33.7); MCHC 32.9 g/dl (32.0-36.0); MEAN CELL VOLUME 74.7 fl (80-96); MEAN PLT VOLUME 9.6 fl (7.5-11.1); MONO % 5.6 % (3.8-10.2); NEUT % 61.4 % (42.8-82.8); PLATELET COUNT 165 K/MM3 (134-434); RBC 4.94 M/mm3 (3.60-5.2); RDW 19.2 % (11.6-15.6); WHITE BLOOD COUNT 7.7 K/mm3 (4.0-10.0)
[2020-10-07 22:00] LABS: INR 0.98 (0.83-1.09); PROTHROMBIN TIME (PATIENT) 12.1 SEC (9.7-13.0)
[2020-10-07 22:02] LABS: ACTIVATED PTT 20.1 SECONDS (25.2-36.5)
[2020-10-07 22:12] LABS: CHLORIDE 103 mmol/L (98-107); SODIUM 133 mmol/L (136-145)
[2020-10-07 22:14] LABS: ALBUMIN 3.3 g/dl (3.4-5.0); CALCIUM 8.8 mg/dL (8.5-10.1)
[2020-10-07 22:15] LABS: BLOOD UREA NITROGEN 12.5 mg/dL (7-18); CO2 24 mmol/L (21-32); GLUCOSE,RANDOM 280 mg/dL (74-106); MAGNESIUM 1.9 mg/dL (1.8-2.4)
[2020-10-07 22:18] LABS: CREATININE 0.9 mg/dL (0.55-1.3); PHOSPHOROUS 3.3 mg/dL (2.5-4.9); SGOT/AST 80 U/L (15-37)
[2020-10-07 22:19] LABS: BILIRUBIN,TOTAL 0.7 mg/dL (0.2-1); TOT PROT 7.4 g/dl (6.4-8.2)
[2020-10-07 22:20] LABS: ALK PHOS 101 U/L (45-117)
[2020-10-07 22:21] LABS: ANION GAP 6 MMOL/L (8-16); SGPT/ALT 22 U/L (13-61)
[2020-10-07 22:22] VITALS: BP 160/86; PULSE 89
[2020-10-07 23:05] LABS: CALCIUM 9.1 mg/dL (8.5-10.1)
[2020-10-07 23:06] LABS: BLOOD UREA NITROGEN 11.4 mg/dL (7-18)
[2020-10-07 23:09] LABS: CREATININE 0.8 mg/dL (0.55-1.3)
== END 2020-10-07 23:40 | disposition home or self-care (01) ==
LOC: SUPCPDRO 20:25 → JER 20:25
DX: R00.2 Palpitations (principal); R06.02 Shortness of breath
CPT/HCPCS: 36415; 71045-TC-FY; 80048; 80053; 82550; 83735; 84100; 84443; 84484; 85025; 85610; 85730; 93005; 93010; 99284-25

== ENCOUNTER 2020-10-22 07:04 | Day surgery (SDC) | payer BC ==
[2020-10-22] MEDS ORDERED: SODIUM CHLORIDE 250 ML IV ONE (09:00)
[2020-10-22 09:06] LABS: BASO % 1.1 % (0-2.0); EOS % 3.1 % (0-4.5); HEMATOCRIT 37.5 % (32.4-45.2); HEMOGLOBIN 12.5 GM/dL (10.7-15.3); LYMPH % 36.5 % (8-40); MCH 24.8 pg (25.7-33.7); MCHC 33.2 g/dl (32.0-36.0); MEAN CELL VOLUME 74.7 fl (80-96); MEAN PLT VOLUME 8.9 fl (7.5-11.1); MONO % 17.6 % (3.8-10.2); NEUT % 41.7 % (42.8-82.8); PLATELET COUNT 294 K/MM3 (134-434); RBC 5.02 M/mm3 (3.60-5.2); RDW 19.8 % (11.6-15.6); WHITE BLOOD COUNT 6.3 K/mm3 (4.0-10.0)
[2020-10-22 09:27] LABS: ALBUMIN 3.6 g/dl (3.4-5.0); BLOOD UREA NITROGEN 11.7 mg/dL (7-18); CALCIUM 8.9 mg/dL (8.5-10.1)
[2020-10-22 09:30] LABS: BILIRUBIN,DIRECT 0.2 mg/dL (0.0-0.2); CREATININE 0.8 mg/dL (0.55-1.3)
[2020-10-22] MEDS ORDERED: DEXAMETHASONE SODIUM PHOSPHATE 8 MG in SODIUM CHLORIDE 50 ML IVPB ONE (09:30)
[2020-10-22] MEDS ORDERED: FAMOTIDINE 20 MG/50 ML IVPB 20 MG/50 ML MG IVPB ONE (09:30)
[2020-10-22] MEDS ORDERED: PALONOSETRON HCL 0.25 MG/5 ML VIAL IVPUSH ONE (09:30)
[2020-10-22 09:32] LABS: BILIRUBIN,TOTAL 0.7 mg/dL (0.2-1)
[2020-10-22] MEDS ORDERED: INSULIN (NOVOLOG) ASPART 100 UNITS/ML 10ML VIAL SQ ONE (09:33)
[2020-10-22 09:48] LABS: PLATELET ESTIMATE NORMAL
[2020-10-22] MEDS ORDERED: OXALIPLATIN 145 MG in DEXTROSE 5%-WATER - 500 ML IV ONE (10:00)
[2020-10-22] MEDS ORDERED: LEUCOVORIN INJECTION - 672 MG in DEXTROSE 5%-WATER - 250 ML IVPB ONE (10:00)
[2020-10-22] MEDS ORDERED: FLUOROURACIL 2,500 MG/50 ML VIAL IVPUSH ONE (12:00)
[2020-10-22] MEDS ORDERED: FLUOROURACIL 4,025 MG in SODIUM CHLORIDE 11.5 ML CP ONE (12:15)
[2020-10-22 17:35] VITALS: TEMP 98.3
[2020-10-22 17:43] VITALS: BP 150/68; PULSE 70
[2020-10-22] MEDS ORDERED: PORTA CATH FLUSH 10 ML IVPUSH ONE (17:43)
== END 2020-10-22 14:15 | disposition home or self-care (01) ==
LOC: JONCCHEMO 07:04
PROVIDERS: ATTEND Internal Medicine Hematology & Oncology
DX: Z51.11 Encounter for antineoplastic chemotherapy (principal); C18.0 Malignant neoplasm of cecum; E11.9 Type 2 diabetes mellitus without complications; Z79.4 Long term (current) use of insulin
CPT/HCPCS: 36415; 80048; 80076; 82378; 82962; 83615; 83735; 85025; 96366; 96367; 96375; 96413; 96415; G0498; J2469; J9263

== ENCOUNTER 2020-10-24 06:50 | Day surgery (SDC) | payer BC ==
[2020-10-24] MEDS ORDERED: D5-1/2NS+20 MEQ KCL - 20 MEQ/1,000 ML INFUS.BAG IV ONE (10:00)
[2020-10-24] MEDS ORDERED: MAGNESIUM SULFATE IN WATER 2 GM/50 ML IVPB IVPB ONE (10:00)
[2020-10-24] MEDS ORDERED: DEXAMETHASONE SODIUM PHOSPHATE 4 MG, ONDANSETRON INJECTION 8 MG in SODIUM CHLORIDE 100 ML IVPB ONE (11:00)
[2020-10-24 17:30] VITALS: TEMP 97.9
[2020-10-24 17:40] VITALS: BP 141/53; PULSE 65
[2020-10-24] MEDS ORDERED: PORTA CATH FLUSH 10 ML IVPUSH ONE (17:40)
== END 2020-10-24 17:30 | disposition home or self-care (01) ==
LOC: JONCNONCHE 06:50
PROVIDERS: ATTEND Internal Medicine Hematology & Oncology
PROC: 3E043GC Introduction of Other Therapeutic Substance into Central Vein, Percutaneous Approach (ICD-10-PCS; principal; 2020-10-24)
PROC: 3E043GC Introduction of Other Therapeutic Substance into Central Vein, Percutaneous Approach (ICD-10-PCS; 2020-10-24)
DX: C18.0 Malignant neoplasm of cecum (principal); Z76.89 Persons encountering health services in other specified circumstances
CPT/HCPCS: 96361; 96365; 96366; J2405

== ENCOUNTER 2020-11-21 06:34 | Day surgery (SDC) | payer BC ==
[2020-11-12 08:48] LABS: BASO % 0.9 % (0-2.0); EOS % 4.2 % (0-4.5); HEMATOCRIT 37.8 % (32.4-45.2); HEMOGLOBIN 12.7 GM/dL (10.7-15.3); LYMPH % 39.3 % (8-40); MCH 25.2 pg (25.7-33.7); MCHC 33.5 g/dl (32.0-36.0); MEAN CELL VOLUME 75.3 fl (80-96); MEAN PLT VOLUME 8.5 fl (7.5-11.1); MONO % 20.3 % (3.8-10.2); NEUT % 35.3 % (42.8-82.8); PLATELET COUNT 280 K/MM3 (134-434); RBC 5.02 M/mm3 (3.60-5.2); RDW 20.3 % (11.6-15.6); WHITE BLOOD COUNT 5.9 K/mm3 (4.0-10.0)
[2020-11-12 09:14] LABS: CALCIUM 8.9 mg/dL (8.5-10.1)
[2020-11-12 09:15] LABS: ALBUMIN 3.4 g/dl (3.4-5.0); BLOOD UREA NITROGEN 15.6 mg/dL (7-18); MAGNESIUM 1.9 mg/dL (1.8-2.4)
[2020-11-12 09:17] LABS: BILIRUBIN,DIRECT 0.2 mg/dL (0.0-0.2); CREATININE 0.8 mg/dL (0.55-1.3)
[2020-11-12 09:19] LABS: BILIRUBIN,TOTAL 0.7 mg/dL (0.2-1); TOT PROT 6.9 g/dl (6.4-8.2)
[2020-11-12 10:10] LABS: ANISOCYTOSIS 1+; MACROCYTOSIS 1+; PLATELET ESTIMATE NORMAL
[~2020-11-21 06:34] MED LIST changes: -D5-1/2NS+20 MEQ KCL - 20 MEQ/1,000 ML INFUS.BAG IV ONE; -DEXAMETHASONE SODIUM PHOSPHATE 4 MG, ONDANSETRON INJECTION 8 MG in SODIUM CHLORIDE 100 ML IVPB ONE; +DEXAMETHASONE SODIUM PHOSPHATE 8 MG in SODIUM CHLORIDE 50 ML IVPB ONE; +FAMOTIDINE 20 MG/50 ML IVPB 20 MG/50 ML MG IVPB ONE; +FLUOROURACIL 2,500 MG/50 ML VIAL IVPUSH ONE; +FLUOROURACIL 4,050 MG in SODIUM CHLORIDE 11 ML CP ONE; +LEUCOVORIN INJECTION - 676 MG in DEXTROSE 5%-WATER - 250 ML IVPB ONE; -MAGNESIUM 1GM/D5W - 1 GM/100 ML IVPB IVPB ONE; +OXALIPLATIN 145 MG in DEXTROSE 5%-WATER - 500 ML IV ONE; +PALONOSETRON HCL 0.25 MG/5 ML VIAL IVPUSH ONE; +SODIUM CHLORIDE 250 ML IV ONE
[2020-11-21] MEDS ORDERED: D5-1/2NS+20 MEQ KCL - 20 MEQ/1,000 ML INFUS.BAG IV ONE (12:45)
[2020-11-21] MEDS ORDERED: MAGNESIUM 1GM/D5W - 1 GM/100 ML IVPB IVPB ONE (13:00)
[2020-11-21] MEDS ORDERED: DEXAMETHASONE INJECTION 4 MG, ONDANSETRON INJECTION 8 MG in SODIUM CHLORIDE 100 ML IVPB ONE (13:30)
[2020-11-21 17:55] VITALS: TEMP 98.4
[2020-11-21] MEDS ORDERED: PORTA CATH FLUSH 10 ML IVPUSH ONE (17:59)
[2020-11-21 18:00] VITALS: BP 130/50; PULSE 59
== END 2020-11-21 16:45 | disposition home or self-care (01) ==
LOC: JONCCHEMO 06:34
PROVIDERS: ATTEND Internal Medicine Hematology & Oncology
PROC: 3E043GC Introduction of Other Therapeutic Substance into Central Vein, Percutaneous Approach (ICD-10-PCS; principal; 2020-11-21)
PROC: 3E043GC Introduction of Other Therapeutic Substance into Central Vein, Percutaneous Approach (ICD-10-PCS; 2020-11-21)
DX: C18.0 Malignant neoplasm of cecum (principal); R09.81 Nasal congestion; R09.89 Other specified symptoms and signs involving the circulatory and respiratory systems; Z76.89 Persons encountering health services in other specified circumstances
CPT/HCPCS: 36415; 70220-TC-FY; 71046-TC-FY; 80048; 80076; 82378; 83735; 85025; 96361; 96365; 96367; J1100; J2405

== ENCOUNTER 2020-12-10 06:38 | Day surgery (SDC) | payer BC ==
[2020-12-10] MEDS ORDERED: SODIUM CHLORIDE 250 ML IV ONE (09:00)
[2020-12-10 09:02] LABS: EOS % 2.3 % (0-4.5); HEMATOCRIT 36.6 % (32.4-45.2); HEMOGLOBIN 12.2 GM/dL (10.7-15.3); LYMPH % 45.9 % (8-40); MCH 25.8 pg (25.7-33.7); MCHC 33.4 g/dl (32.0-36.0); MEAN CELL VOLUME 77.4 fl (80-96); MONO % 21.7 % (3.8-10.2); NEUT % 29.1 % (42.8-82.8); PLATELET COUNT 232 K/MM3 (134-434); RBC 4.73 M/mm3 (3.60-5.2); RDW 19.8 % (11.6-15.6); WHITE BLOOD COUNT 5.1 K/mm3 (4.0-10.0)
[2020-12-10 09:24] LABS: ALBUMIN 3.3 g/dl (3.4-5.0); CALCIUM 9.2 mg/dL (8.5-10.1); MAGNESIUM 2.1 mg/dL (1.8-2.4)
[2020-12-10 09:27] LABS: BILIRUBIN,DIRECT 0.2 mg/dL (0.0-0.2); CREATININE 0.8 mg/dL (0.55-1.3)
[2020-12-10 09:29] LABS: BILIRUBIN,TOTAL 0.9 mg/dL (0.2-1); TOT PROT 6.8 g/dl (6.4-8.2)
[2020-12-10] MEDS ORDERED: PALONOSETRON HCL 0.25 MG/5 ML VIAL IVPUSH ONE (09:30)
[2020-12-10] MEDS ORDERED: DEXAMETHASONE SODIUM PHOSPHATE 8 MG in SODIUM CHLORIDE 50 ML IVPB ONE (09:30)
[2020-12-10] MEDS ORDERED: FAMOTIDINE 20 MG/50 ML IVPB 20 MG/50 ML MG IVPB ONE (09:30)
[2020-12-10] MEDS ORDERED: LEUCOVORIN INJECTION - 676 MG in DEXTROSE 5%-WATER - 250 ML IVPB ONE (10:00)
[2020-12-10 11:07] LABS: ANISOCYTOSIS 0; MACROCYTOSIS 0; PLATELET ESTIMATE NORMAL
[2020-12-10] MEDS ORDERED: INSULIN (NOVOLOG) ASPART 100 UNITS/ML 10ML VIAL SQ ONE (11:15)
[2020-12-10] MEDS ORDERED: FLUOROURACIL 500 MG/10 ML VIAL IVPUSH ONE (12:00)
[2020-12-10] MEDS ORDERED: FLUOROURACIL 4,050 MG in SODIUM CHLORIDE 11 ML CP ONE (12:15)
[2020-12-10 16:24] VITALS: TEMP 98.4
[2020-12-10 16:25] VITALS: BP 168/74; PULSE 62
== END 2020-12-10 15:55 | disposition home or self-care (01) ==
LOC: JONCCHEMO 06:38
PROVIDERS: ATTEND Internal Medicine Hematology & Oncology
PROC: 3E04305 Introduction of Other Antineoplastic into Central Vein, Percutaneous Approach (ICD-10-PCS; principal; 2020-12-10)
PROC: 3E043GC Introduction of Other Therapeutic Substance into Central Vein, Percutaneous Approach (ICD-10-PCS; 2020-12-10)
PROC: 3E043GC Introduction of Other Therapeutic Substance into Central Vein, Percutaneous Approach (ICD-10-PCS; 2020-12-10)
DX: Z51.11 Encounter for antineoplastic chemotherapy (principal); C18.0 Malignant neoplasm of cecum; E11.9 Type 2 diabetes mellitus without complications
CPT/HCPCS: 36415; 80048; 80076; 82962; 83735; 85025; 96361; 96365; 96366; 96375; G0498; J2469; J9190

== ENCOUNTER 2020-12-12 06:59 | Day surgery (SDC) | payer BC ==
[2020-12-12] MEDS ORDERED: D5-1/2NS+20 MEQ KCL - 20 MEQ/1,000 ML INFUS.BAG IV ONE (09:00)
[2020-12-12] MEDS ORDERED: DEXAMETHASONE SODIUM PHOSPHATE 4 MG, ONDANSETRON INJECTION 8 MG in SODIUM CHLORIDE 100 ML IVPB ONE (09:30)
[2020-12-12] MEDS ORDERED: MAGNESIUM 1GM/D5W - 1 GM/100 ML IVPB IVPB ONE (10:00)
[2020-12-12 16:59] VITALS: TEMP 98.3
[2020-12-12] MEDS ORDERED: PORTA CATH FLUSH 10 ML IVPUSH ONE (17:02)
[2020-12-12 17:03] VITALS: BP 139/61; PULSE 61
== END 2020-12-12 16:50 | disposition home or self-care (01) ==
LOC: JONCCHEMO 06:59
PROVIDERS: ATTEND Internal Medicine Hematology & Oncology
PROC: 3E043GC Introduction of Other Therapeutic Substance into Central Vein, Percutaneous Approach (ICD-10-PCS; principal; 2020-12-12)
PROC: 3E043GC Introduction of Other Therapeutic Substance into Central Vein, Percutaneous Approach (ICD-10-PCS; 2020-12-12)
DX: C18.0 Malignant neoplasm of cecum (principal); E11.9 Type 2 diabetes mellitus without complications; Z76.89 Persons encountering health services in other specified circumstances
CPT/HCPCS: 96361; 96365; J2405

== ENCOUNTER 2020-12-31 07:24 | Day surgery (SDC) | payer BC ==
[2020-12-31] MEDS ORDERED: SODIUM CHLORIDE 250 ML IV ONE (09:00)
[2020-12-31 09:08] LABS: EOS % 4.8 % (0-4.5); HEMATOCRIT 36.1 % (32.4-45.2); HEMOGLOBIN 11.9 GM/dL (10.7-15.3); LYMPH % 39.5 % (8-40); MCH 26.3 pg (25.7-33.7); MCHC 33.1 g/dl (32.0-36.0); MEAN CELL VOLUME 79.6 fl (80-96); MEAN PLT VOLUME 8.5 fl (7.5-11.1); MONO % 18.1 % (3.8-10.2); NEUT % 36.6 % (42.8-82.8); PLATELET COUNT 231 10^3/uL (134-434); RBC 4.53 M/mm3 (3.60-5.2); RDW 20.2 % (11.6-15.6); WHITE BLOOD COUNT 5.5 K/mm3 (4.0-10.0)
[2020-12-31] MEDS ORDERED: DEXAMETHASONE SODIUM PHOSPHATE 8 MG in SODIUM CHLORIDE 50 ML IVPB ONE (09:30)
[2020-12-31] MEDS ORDERED: PALONOSETRON HCL 0.25 MG/5 ML VIAL IVPUSH ONE (09:30)
[2020-12-31] MEDS ORDERED: FAMOTIDINE 20 MG/50 ML IVPB 20 MG/50 ML MG IVPB ONE (09:30)
[2020-12-31 09:34] LABS: ALBUMIN 3.5 g/dl (3.4-5.0); BLOOD UREA NITROGEN 14.4 mg/dL (7-18); MAGNESIUM 2.1 mg/dL (1.8-2.4)
[2020-12-31 09:36] LABS: BILIRUBIN,DIRECT 0.2 mg/dL (0.0-0.2)
[2020-12-31 09:37] LABS: CREATININE 0.8 mg/dL (0.55-1.3)
[2020-12-31 09:38] LABS: BILIRUBIN,TOTAL 1.2 mg/dL (0.2-1)
[2020-12-31 09:39] LABS: TOT PROT 6.8 g/dl (6.4-8.2)
[2020-12-31] MEDS ORDERED: LEUCOVORIN INJECTION - 672 MG in DEXTROSE 5%-WATER - 250 ML IVPB ONE (10:00)
[2020-12-31] MEDS ORDERED: INSULIN (NOVOLOG) ASPART 100 UNITS/ML 10ML VIAL SQ ONE (10:14)
[2020-12-31] MEDS ORDERED: FLUOROURACIL 500 MG/10 ML VIAL IVPUSH ONE (12:00)
[2020-12-31] MEDS ORDERED: FLUOROURACIL 4,025 MG in SODIUM CHLORIDE 11.5 ML CP ONE (12:15)
[2020-12-31 16:43] VITALS: TEMP 98.1
[2020-12-31 16:44] VITALS: BP 148/55; PULSE 60
== END 2020-12-31 16:20 | disposition home or self-care (01) ==
LOC: JONCCHEMO 07:24
PROVIDERS: ATTEND Internal Medicine Hematology & Oncology
PROC: 3E04305 Introduction of Other Antineoplastic into Central Vein, Percutaneous Approach (ICD-10-PCS; principal; 2020-12-31)
PROC: 3E0437Z Introduction of Electrolytic and Water Balance Substance into Central Vein, Percutaneous Approach (ICD-10-PCS; 2020-12-31)
DX: Z51.11 Encounter for antineoplastic chemotherapy (principal); C18.0 Malignant neoplasm of cecum; E11.9 Type 2 diabetes mellitus without complications
CPT/HCPCS: 36415; 80048; 80076; 83735; 85025; 96361; 96375; 96409; G0498; J2469; J9190

== ENCOUNTER 2021-01-02 06:33 | Day surgery (SDC) | payer BC ==
[2021-01-02] MEDS ORDERED: POTASSIUM CHLORIDE IVPB ONE (09:00)
[2021-01-02] MEDS ORDERED: [UNRECOGNIZED DRUG - OTHER] IVPB ONE (09:00)
[2021-01-02] MEDS ORDERED: DEXTROSE IVPB ONE (09:00)
[2021-01-02] MEDS ORDERED: MAGNESIUM SULFATE IVPB ONE (09:00)
[2021-01-02] MEDS ORDERED: DEXAMETHASONE SODIUM PHOSPHATE 4 MG, ONDANSETRON INJECTION 8 MG in SODIUM CHLORIDE 100 ML IVPB ONE (10:00)
[2021-01-02] MEDS ORDERED: INSULIN (NOVOLOG) ASPART 100 UNITS/ML 10ML VIAL SQ ONE (15:30)
[2021-01-02 16:49] VITALS: TEMP 98.3
[2021-01-02 16:50] VITALS: BP 120/48; PULSE 58
== END 2021-01-02 15:45 | disposition home or self-care (01) ==
LOC: JONCCHEMO 06:33
PROVIDERS: ATTEND Internal Medicine Hematology & Oncology
PROC: 3E0437Z Introduction of Electrolytic and Water Balance Substance into Central Vein, Percutaneous Approach (ICD-10-PCS; principal; 2021-01-02)
PROC: 3E043GC Introduction of Other Therapeutic Substance into Central Vein, Percutaneous Approach (ICD-10-PCS; 2021-01-02)
DX: C18.0 Malignant neoplasm of cecum (principal); E11.9 Type 2 diabetes mellitus without complications; Z76.89 Persons encountering health services in other specified circumstances
CPT/HCPCS: 82962; 96361; 96365; J2405

== ENCOUNTER 2021-01-21 05:32 | Day surgery (SDC) | payer BC ==
[2021-01-21] MEDS ORDERED: SODIUM CHLORIDE 250 ML IV ONE (09:00)
[2021-01-21] MEDS ORDERED: DEXAMETHASONE SODIUM PHOSPHATE 8 MG in SODIUM CHLORIDE 50 ML IVPB ONE (10:00)
[2021-01-21] MEDS ORDERED: FAMOTIDINE 20 MG/50 ML IVPB 20 MG/50 ML MG IVPB ONE (10:00)
[2021-01-21] MEDS ORDERED: PALONOSETRON HCL 0.25 MG/5 ML VIAL IVPUSH ONE (10:00)
[2021-01-21] MEDS ORDERED: WATER IVPB ONE (10:30)
[2021-01-21] MEDS ORDERED: LEUCOVORIN IVPB ONE (10:30)
[2021-01-21] MEDS ORDERED: DEXTROSE 5% IVPB ONE (10:30)
[2021-01-21] MEDS ORDERED: FLUOROURACIL 2,500 MG/50 ML VIAL IVPUSH ONE (12:30)
[2021-01-21] MEDS ORDERED: SODIUM CHLORIDE CP ONE (12:30)
[2021-01-21] MEDS ORDERED: FLUOROURACIL CP ONE (12:30)
[2021-01-21 12:51] LABS: BASO % 0.6 % (0-2.0); EOS % 3.9 % (0-4.5); HEMATOCRIT 36.5 % (32.4-45.2); HEMOGLOBIN 12.3 GM/dL (10.7-15.3); LYMPH % 38.5 % (8-40); MCHC 33.7 g/dl (32.0-36.0); MEAN PLT VOLUME 8.8 fl (7.5-11.1); PLATELET COUNT 248 10^3/uL (134-434); RBC 4.55 M/mm3 (3.60-5.2); RDW 18.4 % (11.6-15.6)
[2021-01-21 13:13] LABS: CALCIUM 8.9 mg/dL (8.5-10.1)
[2021-01-21 13:14] LABS: ALBUMIN 3.4 g/dl (3.4-5.0); BLOOD UREA NITROGEN 13.8 mg/dL (7-18)
[2021-01-21 13:16] LABS: BILIRUBIN,DIRECT 0.2 mg/dL (0.0-0.2)
[2021-01-21 13:17] LABS: BILIRUBIN,TOTAL 1.2 mg/dL (0.2-1); CREATININE 0.9 mg/dL (0.55-1.3); TOT PROT 6.6 g/dl (6.4-8.2)
[2021-01-21] MEDS ORDERED: INSULIN (NOVOLOG) ASPART 100 UNITS/ML 10ML VIAL SQ ONE (13:25)
[2021-01-21 17:45] VITALS: TEMP 98.3
[2021-01-21 17:50] VITALS: BP 151/46; PULSE 60
== END 2021-01-21 18:12 | disposition home or self-care (01) ==
LOC: JONCCHEMO 05:32
PROVIDERS: ATTEND Internal Medicine Hematology & Oncology
DX: Z51.11 Encounter for antineoplastic chemotherapy (principal); C18.0 Malignant neoplasm of cecum
CPT/HCPCS: 36415; 80048; 80076; 82378; 83735; 85025; 96361; 96365; 96366; 96375; 96409; G0498; J2469

== ENCOUNTER 2021-01-23 06:48 | Day surgery (SDC) | payer BC ==
[2021-01-23] MEDS: D5-1/2NS+20 MEQ KCL - 20 MEQ/1,000 ML INFUS.BAG IV ONE ×2 (09:25→10:00)
[2021-01-23] MEDS ORDERED: DEXAMETHASONE SODIUM PHOSPHATE 4 MG, ONDANSETRON INJECTION 8 MG in SODIUM CHLORIDE 100 ML IVPB ONE (10:00)
[2021-01-23] MEDS ORDERED: MAGNESIUM 1GM/D5W - 1 GM/100 ML IVPB IVPB ONE (10:00)
[2021-01-23 17:04] VITALS: BP 189/63; PULSE 61; TEMP 98
[2021-01-23] MEDS ORDERED: PORTA CATH FLUSH 10 ML IVPUSH ONE (17:04)
== END 2021-01-23 16:00 | disposition home or self-care (01) ==
LOC: JONCNONCHE 06:48
PROVIDERS: ATTEND Internal Medicine Hematology & Oncology
PROC: 3E043GC Introduction of Other Therapeutic Substance into Central Vein, Percutaneous Approach (ICD-10-PCS; principal; 2021-01-23)
DX: C18.0 Malignant neoplasm of cecum (principal); Z76.89 Persons encountering health services in other specified circumstances
CPT/HCPCS: 96365

== ENCOUNTER 2021-02-13 15:11 | Emergency (ER) | payer BC ==
[2021-02-13 15:31] VITALS: BP 166/70; PULSE 56; TEMP 98; BMI 27.1
[2021-02-13] MEDS ORDERED: MECLIZINE HCL 25 MG TABLET (FP) PO ONE (16:00)
[2021-02-13] MEDS ORDERED: ACETAMINOPHEN 500 MG TABLET (FP) PO ONE (16:00)
[2021-02-13] MEDS ORDERED: SODIUM CHLORIDE 0.9% 500 ML INFUS.BAG IV ONE (16:06)
[2021-02-13] MEDS ORDERED: MECLIZINE HCL 25 MG TABLET (FP) ONE (16:20)
[2021-02-13] MEDS ORDERED: ACETAMINOPHEN INJECTION 100 ML IVPB ONE (16:20)
[2021-02-13 17:46] LABS: BASO % 0.9 % (0-2.0); EOS % 2.9 % (0-4.5); HEMATOCRIT 37.9 % (32.4-45.2); HEMOGLOBIN 12.6 GM/dL (10.7-15.3); LYMPH % 35.5 % (8-40); MCH 26.7 pg (25.7-33.7); MCHC 33.3 g/dl (32.0-36.0); MEAN CELL VOLUME 80.2 fl (80-96); MONO % 15.9 % (3.8-10.2); NEUT % 44.8 % (42.8-82.8); PLATELET COUNT 248 10^3/uL (134-434); RBC 4.73 M/mm3 (3.60-5.2); RDW 18.4 % (11.6-15.6); WHITE BLOOD COUNT 6.1 K/mm3 (4.0-10.0)
[2021-02-13 18:05] LABS: CHLORIDE 106 mmol/L (98-107); SODIUM 142 mmol/L (136-145)
[2021-02-13 18:08] LABS: ALBUMIN 3.7 g/dl (3.4-5.0); ANION GAP 8 MMOL/L (8-16); CO2 28 mmol/L (21-32); GLUCOSE,RANDOM 161 mg/dL (74-106); MAGNESIUM 2.2 mg/dL (1.8-2.4)
[2021-02-13 18:10] LABS: SGPT/ALT 27 U/L (13-61)
[2021-02-13 18:11] LABS: CREATININE 0.9 mg/dL (0.55-1.3); SGOT/AST 22 U/L (15-37)
[2021-02-13 18:12] LABS: BILIRUBIN,TOTAL 0.9 mg/dL (0.2-1); TOT PROT 7.3 g/dl (6.4-8.2)
[2021-02-13 18:13] LABS: ALK PHOS 149 U/L (45-117)
== END 2021-02-13 18:45 | disposition home or self-care (01) ==
LOC: JER 15:11
DX: R42 Dizziness and giddiness (principal)
CPT/HCPCS: 36415; 70450-TC; 80053; 83735; 84100; 84484; 85025; 93005; 93010; 99285-25

== ENCOUNTER 2021-11-07 04:34 | Emergency (ER) | payer BC ==
[2021-11-07 04:38] VITALS: BMI 27.3
[2021-11-07] MEDS ORDERED: ACETAMINOPHEN 1000 MG/100 ML BAG IVPB ONE (05:30)
[2021-11-07] MEDS ORDERED: ONDANSETRON 4 MG/2 ML VIAL IVPUSH ONE ×2 (05:31→09:15)
[2021-11-07] MEDS ORDERED: ACETAMINOPHEN INJECTION 100 ML IVPB ONE (05:32)
[2021-11-07] MEDS ORDERED: ONDANSETRON 4 MG/2 ML VIAL ONE ×2 (05:32→09:15)
[2021-11-07] MEDS ORDERED: SODIUM CHLORIDE 0.9% 500 ML INFUS.BAG IV ONE (06:41)
[2021-11-07 07:36] LABS: BASO % 0.3 % (0-2.0); HEMATOCRIT 42.4 % (32.4-45.2); HEMOGLOBIN 14.2 GM/dL (10.7-15.3); MCH 26.1 pg (25.7-33.7); MCHC 33.6 g/dl (32.0-36.0); MEAN CELL VOLUME 77.8 fl (80-96); MEAN PLT VOLUME 9.3 fl (7.5-11.1); MONO % 11.3 % (3.8-10.2); NEUT % 69.4 % (42.8-82.8); PLATELET COUNT 223 10^3/uL (134-434); RBC 5.45 M/mm3 (3.60-5.2); RDW 14.6 % (11.6-15.6); WHITE BLOOD COUNT 7.4 K/mm3 (4.0-10.0)
[2021-11-07 07:49] LABS: INR 1.04 (0.83-1.09)
[2021-11-07 07:51] LABS: ACTIVATED PTT 27.9 SECONDS (25.2-36.5)
[2021-11-07 08:07] LABS: BLOOD UREA NITROGEN 9.4 mg/dL (7-18); MAGNESIUM 2.1 mg/dL (1.8-2.4)
[2021-11-07 08:10] LABS: CREATININE 0.8 mg/dL (0.55-1.3); PHOSPHOROUS 4.8 mg/dL (2.5-4.9)
[2021-11-07 08:11] LABS: BILIRUBIN,TOTAL 1.3 mg/dL (0.2-1); TOT PROT 8.4 g/dl (6.4-8.2)
[2021-11-07 08:15] LABS: LACTIC ACID 2.1 mmol/L (0.4-2.0)
[2021-11-07 10:45] VITALS: BP 126/69; PULSE 64; TEMP 98.4
== END 2021-11-07 12:05 | disposition home or self-care (01) ==
LOC: JER 04:34
PROC: 3E033GC Introduction of Other Therapeutic Substance into Peripheral Vein, Percutaneous Approach (ICD-10-PCS; principal; 2021-11-07)
DX: R11.10 Vomiting, unspecified (principal)
CPT/HCPCS: 36415; 71045-TC-FY; 74018-TC-FY; 80053; 83605; 83690; 83735; 84100; 84484; 85025; 85610; 85730; 93005; 93010; 96374; 96375; 96376; 99285-25; C9803-CS; U0003; U0005

== ENCOUNTER 2023-03-10 22:24 | Inpatient (IN) | payer OTHER ==
[2023-03-10] MEDS ORDERED: SODIUM CHLORIDE 0.9% 500 ML INFUS.BAG IV ONE (23:27)
[2023-03-10] MEDS ORDERED: ACETAMINOPHEN 1000 MG/100 ML BAG IVPB ONE (23:27)
[2023-03-10] MEDS ORDERED: morphine CARPU-JECT 4 MG/1 ML DISP.SYRIN IVPUSH ONE (23:30)
[2023-03-10] MEDS ORDERED: ACETAMINOPHEN INJECTION 100 ML IVPB ONE (23:48)
[2023-03-10 23:51] LABS: BASO % 0.7 % (0-2.0); EOS % 2.1 % (0-4.5); HEMATOCRIT 33.3 % (32.4-45.2); LYMPH % 38.9 % (8-40); MCH 25.3 pg (25.7-33.7); MEAN CELL VOLUME 76.7 fl (80-96); MEAN PLT VOLUME 7.7 fl (7.5-11.1); MONO % 3.7 % (3.8-10.2); NEUT % 54.6 % (42.8-82.8); PLATELET COUNT 195 10^3/uL (134-434); RBC 4.34 M/mm3 (3.60-5.2); RDW 19.2 % (11.6-15.6); WHITE BLOOD COUNT 2.8 K/mm3 (4.0-10.0)
[2023-03-11 00:11] LABS: POTASSIUM 4.9 mmol/L (3.5-5.1)
[2023-03-11 00:14] LABS: ALBUMIN 3.6 g/dl (3.4-5.0); BLOOD UREA NITROGEN 7.8 mg/dL (7-18)
[2023-03-11 00:17] LABS: CREATININE 0.7 mg/dL (0.55-1.3)
[2023-03-11 00:19] LABS: BILIRUBIN,TOTAL 0.8 mg/dL (0.2-1); TOT PROT 7.4 g/dl (6.4-8.2)
[2023-03-11 00:53] LABS: EPI CELLS 5 /uL (0-25.1); HYALINE CASTS 0 /uL (0-3.1); PH,URINE 5.5 (5.0-8.0); URINE APPEARANCE CLOUDY; URINE BILIRUBIN NEGATIVE (NEGATIVE); URINE COLOR YELLOW; URINE GLUCOSE (UA) NEGATIVE (NEGATIVE); URINE KETONE NEGATIVE (NEGATIVE); URINE LEUK ESTERASE 3+ (NEGATIVE); URINE NITRITE POSITIVE (NEGATIVE); URINE PROTEIN 2+ (NEGATIVE); URINE RBC 128 /uL (0-23.9); URINE UROBILINOGEN 0.2 mg/dL (0.2-1.0); URINE WBC 3152 /uL (0-25.8)
[2023-03-11] MEDS ORDERED: PIPERACILLIN/TAZOB 4.5 GM 4.5 GM in DEXTROSE 5%-WATER 100 ML IVPB ONE (01:05)
[2023-03-11] MEDS ORDERED: PIPERACILLIN/TAZOB 4.5 GM 4.5 GM/100 ML BAG IVPB ONE (02:09)
[2023-03-11] MEDS ORDERED: REMDESIVIR 200 MG in SODIUM CHLORIDE 250 ML IVPB ONE ×2 (02:54→07:00)
[2023-03-11] MEDS ORDERED: AZITHROMYCIN IVPB 500 MG in DEXTROSE 5%-WATER - 250 ML IVPB ONE (08:12)
[2023-03-11] MEDS ORDERED: ACETAMINOPHEN 1000 MG/100 ML BAG IVPB PRN (08:13)
[2023-03-11] MEDS ORDERED: AZITHROMYCIN IVPB 500 MG/250 ML BAG IVPB ONE ×2 (09:00→10:28)
[2023-03-11] MEDS: APIXABAN 5 MG TABLET PO SCH ×2 (09:29→22:47)
[2023-03-11] MEDS: ASPIRIN 81 MG CHEWABLE TABLETS PO SCH (09:29)
[2023-03-11] MEDS: DEXAMETHASONE 4 MG TABLET (FP) PO SCH (09:29)
[2023-03-11] MEDS: LOSARTAN POTASSIUM 50 MG TABLET PO SCH (09:29)
[2023-03-11] MEDS: DEXTROSE 5%-0.45% SALINE 1,000 ML IV SCH (09:29)
[2023-03-11] MEDS ORDERED: CEFTRIAXONE 1 GM/50 ML BAG ONE (11:53)
[2023-03-11] MEDS ORDERED: INSULIN (NOVOLOG) ASPART 100 UNITS/ML 10ML VIAL ONE (11:58)
[2023-03-11] MEDS: INSULIN SLIDING SCALE (NOVOLOG) 1 VIAL SQ SCH ×3 (12:07→22:47)
[2023-03-11] MEDS: CEFTRIAXONE 1 GM in DEXTROSE 5%-WATER - 50 ML IVPB SCH (12:07)
[2023-03-11] MEDS ORDERED: REMDESIVIR 100 MG in SODIUM CHLORIDE 250 ML IVPB SCH (14:00)
[2023-03-11] MEDS ORDERED: ROSUVASTATIN CA 20 MG TABLET ONE (22:23)
[2023-03-11] MEDS ORDERED: APIXABAN 5 MG TABLET ONE (22:23)
[2023-03-11] MEDS: ROSUVASTATIN CA 10 MG TABLET PO SCH (22:47)
[2023-03-12] MEDS: INSULIN SLIDING SCALE (NOVOLOG) 1 VIAL SQ SCH ×4 (06:41→22:24)
[2023-03-12 09:38] LABS: BASO % 0.6 % (0-2.0); EOS % 0.2 % (0-4.5); HEMATOCRIT 25.6 % (32.4-45.2); HEMOGLOBIN 8.8 GM/dL (10.7-15.3); LYMPH % 53.7 % (8-40); MCH 25.5 pg (25.7-33.7); MCHC 34.2 g/dl (32.0-36.0); MEAN CELL VOLUME 74.4 fl (80-96); MEAN PLT VOLUME 7.4 fl (7.5-11.1); NEUT % 39.5 % (42.8-82.8); PLATELET COUNT 169 10^3/uL (134-434); RBC 3.44 M/mm3 (3.60-5.2); WHITE BLOOD COUNT 3.1 K/mm3 (4.0-10.0)
[2023-03-12 09:59] LABS: POTASSIUM 3.5 mmol/L (3.5-5.1)
[2023-03-12 10:07] LABS: CALCIUM 8.1 mg/dL (8.5-10.1); CREATININE 0.6 mg/dL (0.55-1.3)
[2023-03-12 10:08] LABS: BLOOD UREA NITROGEN 7.1 mg/dL (7-18)
[2023-03-12 10:09] LABS: BILIRUBIN,TOTAL 0.6 mg/dL (0.2-1); TOT PROT 5.7 g/dl (6.4-8.2)
[2023-03-12 10:12] LABS: ALBUMIN 2.8 g/dl (3.4-5.0)
[2023-03-12] MEDS: DEXAMETHASONE 4 MG TABLET (FP) PO SCH (11:46)
[2023-03-12] MEDS: LOSARTAN POTASSIUM 50 MG TABLET PO SCH (11:47)
[2023-03-12] MEDS: APIXABAN 5 MG TABLET PO SCH ×2 (11:47→22:07)
[2023-03-12] MEDS: ASPIRIN 81 MG CHEWABLE TABLETS PO SCH (11:47)
[2023-03-12] MEDS: CEFTRIAXONE 1 GM in DEXTROSE 5%-WATER - 50 ML IVPB SCH (11:48)
[2023-03-12] MEDS: REMDESIVIR 100 MG in SODIUM CHLORIDE 250 ML IVPB SCH (11:48)
[2023-03-12] MEDS: DEXTROSE 5%-0.45% SALINE 1,000 ML IV SCH (11:59)
[2023-03-12] MEDS: AZITHROMYCIN IVPB 250 MG in DEXTROSE 5%-WATER - 250 ML IVPB SCH (15:13)
[2023-03-12] MEDS: ROSUVASTATIN CA 10 MG TABLET PO SCH (22:07)
[2023-03-13] MEDS: INSULIN SLIDING SCALE (NOVOLOG) 1 VIAL SQ SCH ×4 (06:56→22:20)
[2023-03-13] MEDS: LOSARTAN POTASSIUM 50 MG TABLET PO SCH (11:16)
[2023-03-13] MEDS: APIXABAN 5 MG TABLET PO SCH ×2 (11:16→21:58)
[2023-03-13] MEDS: ASPIRIN 81 MG CHEWABLE TABLETS PO SCH (11:16)
[2023-03-13] MEDS: DEXAMETHASONE 4 MG TABLET (FP) PO SCH (11:17)
[2023-03-13] MEDS: CEFTRIAXONE 1 GM in DEXTROSE 5%-WATER - 50 ML IVPB SCH (12:04)
[2023-03-13] MEDS: REMDESIVIR 100 MG in SODIUM CHLORIDE 250 ML IVPB SCH (13:00)
[2023-03-13] MEDS: AZITHROMYCIN IVPB 250 MG in DEXTROSE 5%-WATER - 250 ML IVPB SCH (13:02)
[2023-03-13] MEDS: DEXTROSE 5%-0.45% SALINE 1,000 ML IV SCH (13:06)
[2023-03-13 15:04] VITALS: BMI 23.8
[2023-03-13] MEDS ORDERED: INSULIN (NOVOLOG) ASPART 100 UNITS/ML 10ML VIAL ONE (17:22)
[2023-03-13] MEDS: ROSUVASTATIN CA 10 MG TABLET PO SCH (21:58)
[2023-03-14] MEDS: INSULIN SLIDING SCALE (NOVOLOG) 1 VIAL SQ SCH ×4 (06:20→22:36)
[2023-03-14] MEDS: LOSARTAN POTASSIUM 50 MG TABLET PO SCH (10:39)
[2023-03-14] MEDS: APIXABAN 5 MG TABLET PO SCH ×2 (10:39→22:36)
[2023-03-14] MEDS: DEXAMETHASONE 4 MG TABLET (FP) PO SCH (10:39)
[2023-03-14] MEDS: ASPIRIN 81 MG CHEWABLE TABLETS PO SCH (10:39)
[2023-03-14] MEDS: CEFTRIAXONE 1 GM in DEXTROSE 5%-WATER - 50 ML IVPB SCH (10:40)
[2023-03-14] MEDS: DEXTROSE 5%-0.45% SALINE 1,000 ML IV SCH (10:43)
[2023-03-14] MEDS: AZITHROMYCIN IVPB 250 MG in DEXTROSE 5%-WATER - 250 ML IVPB SCH (11:48)
[2023-03-14] MEDS ORDERED: ACETAMINOPHEN 325 MG TABLET (FP) PO PRN (16:19)
[2023-03-14] MEDS ORDERED: INSULIN (NOVOLOG) ASPART 100 UNITS/ML 10ML VIAL ONE (21:54)
[2023-03-14] MEDS: ROSUVASTATIN CA 10 MG TABLET PO SCH (22:36)
[2023-03-15] MEDS: INSULIN SLIDING SCALE (NOVOLOG) 1 VIAL SQ SCH ×4 (07:05→23:13)
[2023-03-15] MEDS: DEXTROSE 5%-0.45% SALINE 1,000 ML IV SCH ×2 (08:15→23:16)
[2023-03-15 09:44] LABS: HEMATOCRIT 32.2 % (32.4-45.2); HEMOGLOBIN 10.8 GM/dL (10.7-15.3); MCH 25.4 pg (25.7-33.7); MCHC 33.5 g/dl (32.0-36.0); MEAN CELL VOLUME 75.9 fl (80-96); PLATELET COUNT 300 10^3/uL (134-434); RBC 4.25 M/mm3 (3.60-5.2); RDW 19.9 % (11.6-15.6); WHITE BLOOD COUNT 3.5 K/mm3 (4.0-10.0)
[2023-03-15] MEDS ORDERED: GABAPENTIN 100 MG CAPSULE PO PRN (09:46)
[2023-03-15] MEDS ORDERED: oxyCODONE HCL 5 MG TABLET PO PRN ×2 (09:47→09:48)
[2023-03-15 10:00] LABS: POTASSIUM 4.1 mmol/L (3.5-5.1)
[2023-03-15 10:06] LABS: CALCIUM 8.9 mg/dL (8.5-10.1)
[2023-03-15 10:07] LABS: BLOOD UREA NITROGEN 11.3 mg/dL (7-18)
[2023-03-15 10:08] LABS: CREATININE 0.6 mg/dL (0.55-1.3)
[2023-03-15 10:10] LABS: BILIRUBIN,TOTAL 0.6 mg/dL (0.2-1); TOT PROT 6.4 g/dl (6.4-8.2)
[2023-03-15] MEDS: DEXAMETHASONE 4 MG TABLET (FP) PO SCH (10:30)
[2023-03-15] MEDS: CEFTRIAXONE 1 GM in DEXTROSE 5%-WATER - 50 ML IVPB SCH (10:30)
[2023-03-15] MEDS: APIXABAN 5 MG TABLET PO SCH ×2 (10:32→23:15)
[2023-03-15] MEDS: AZITHROMYCIN IVPB 250 MG in DEXTROSE 5%-WATER - 250 ML IVPB SCH (10:32)
[2023-03-15] MEDS: ASPIRIN 81 MG CHEWABLE TABLETS PO SCH ×2 (10:32→20:16)
[2023-03-15] MEDS: LOSARTAN POTASSIUM 50 MG TABLET PO SCH (10:32)
[2023-03-15 10:49] LABS: ANISOCYTOSIS 0; MACROCYTOSIS 0
[2023-03-15] MEDS ORDERED: INSULIN (NOVOLOG) ASPART 100 UNITS/ML 10ML VIAL ONE ×4 (12:12→23:13)
[2023-03-15] MEDS: ROSUVASTATIN CA 10 MG TABLET PO SCH (23:15)
[2023-03-16] MEDS: INSULIN SLIDING SCALE (NOVOLOG) 1 VIAL SQ SCH ×2 (07:16→12:02)
[2023-03-16] MEDS: DEXAMETHASONE 4 MG TABLET (FP) PO SCH (10:51)
[2023-03-16] MEDS: LOSARTAN POTASSIUM 50 MG TABLET PO SCH (10:51)
[2023-03-16] MEDS: APIXABAN 5 MG TABLET PO SCH (10:51)
[2023-03-16] MEDS: ASPIRIN 81 MG CHEWABLE TABLETS PO SCH (10:51)
[2023-03-16] MEDS: AZITHROMYCIN IVPB 250 MG in DEXTROSE 5%-WATER - 250 ML IVPB SCH (11:04)
[2023-03-16] MEDS: CEFTRIAXONE 1 GM in DEXTROSE 5%-WATER - 50 ML IVPB SCH (11:04)
[2023-03-16] MEDS ORDERED: INSULIN (NOVOLOG) ASPART 100 UNITS/ML 10ML VIAL ONE (11:58)
[2023-03-16 15:54] VITALS: BP 142/62; PULSE 55; RESP 16; TEMP 98
== END 2023-03-16 16:49 | disposition home or self-care (01) | DRG 178 ==
LOC: JER 22:24 → JERBED 03-11 02:50 → J8W 03-12 01:01
PROVIDERS: ADMIT Internal Medicine; ATTEND Internal Medicine
PROC: XW033E5 Introduction of Remdesivir Anti-infective into Peripheral Vein, Percutaneous Approach, New Technology Group 5 (ICD-10-PCS; principal; 2023-03-11)
DX: U07.1 COVID-19 (principal); C18.9 Malignant neoplasm of colon, unspecified; N39.0 Urinary tract infection, site not specified; C79.89 Secondary malignant neoplasm of other specified sites; E11.9 Type 2 diabetes mellitus without complications; I10 Essential (primary) hypertension; E78.5 Hyperlipidemia, unspecified; Z79.4 Long term (current) use of insulin; D64.9 Anemia, unspecified; E05.90 Thyrotoxicosis, unspecified without thyrotoxic crisis or storm
CPT/HCPCS: 0241U-QW; 36415; 71045-TC-FY; 74177-TC; 80053; 81003; 82550; 82962; 83605; 84484; 85025; 85610; 85730; 86850; 86900; 86901; 87040; 87086; 87186; 93005; 93010; 99285-25; C9399; Q9967